=== PATIENT | male | born 1990 ===

== ENCOUNTER 2021-06-27 07:57 | Inpatient (IN) | payer SELFPAY ==
[2021-06-27 08:53] LABS: Hematocrit 41.1 % (35.5-45.6); Hemoglobin 13.3 gm/dl (11.8-15.2); Mean Corpuscular HGB Conc 32 % (32-34); Mean Corpuscular Volume 84 fl (84-94); Platelet Count 297 K/mm3 (140-440); Red Blood Count 4.92 M/mm3 (3.65-5.03); Red Cell Distribution Width 17.8 % (13.2-15.2)
--- NOTE | 2021-06-27 09:02 | Emergency Department Report ---
ED General Adult HPI - General Chief complaint: Extremity Problem,Nontraumatic Stated complaint: RT LEG PAIN PUI?: No Time Seen by Provider: 06/27/21 08:10 Source: patient Mode of arrival: Ambulatory Limitations: No Limitations - History of Present Illness Initial comments: 30 yo male comes to ER with BLE pain; Right more than left. Hx DVT. Family is to bring medical records Denies sob or chest pain. Welsh speaking pt. Poor informant. Pt was admitted to [facility] 05-30-21 to 06-04-21 for DVT and what was concerning for mass/nodules on chest xray. Biopsy was done but no results are in the EMR provided to me Pt has been on lovenox BID since 06-04-21; he reports compliance but he states the pain is unbearable. 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 Absent: respiratory distress - Cardiovascular Cardiovascular Exam: Present: regular rate, normal rhythm. Absent: systolic murmur, diastolic murmur, rubs, gallop - GI/Abdominal GI/Abdominal exam: Present: soft, normal bowel sounds - Rectal Rectal exam: Present: deferred - Extremities Exam Extremities exam: Present: normal inspection - Expanded Lower Extremity Exam Right Lower Leg exam: Present: swelling - Back Exam Back exam: Present: normal inspection - Neurological Exam Neurological exam: Present: alert, oriented X3 - Psychiatric Psychiatric exam: Present: normal affect, normal mood - Skin Skin exam: Present: warm, dry, intact, normal color. Absent: rash ED Course Vital Signs 06/27/21 06/27/21 08:03 12:24 Temperature 98.2 F Pulse Rate 57 L 52 L Respiratory 18 12 Rate Blood Pressure 109/73 Blood Pressure 100/61 [Right] O2 Sat by Pulse 100 98 Oximetry ED Medical Decision Making - Lab Data Result diagrams: 06/27/21 08:36 06/27/21 08:36 - EKG Data EKG shows normal: sinus rhythm Rate: normal - EKG Data When compared to previous EKG there are: no significant change Interpretation: no acute changes - Radiology Data Radiology results: report reviewed, image reviewed interpreted by me: bilateral DVT PE see reports - Medical Decision Making Labs 06/27/21 06/27/21 08:36 08:36 WBC 5.2 RBC 4.92 Hgb 13.3 Hct 41.1 MCV 84 MCH 27 L MCHC 32 RDW 17.8 H Plt Count 297 Sodium 140 Potassium 4.2 Chloride 105.2 Carbon Dioxide 23 Anion Gap 16 BUN 9 Creatinine 0.9 Estimated GFR > 60 BUN/Creatinine Ratio 10 Glucose 94 Calcium 9.1 Total Bilirubin 0.30 AST 13 ALT 29 Alkaline Phosphatase 66 Total Protein 7.2 Albumin 4.1 Albumin/Globulin Ratio 1.3 Vital Signs 06/27/21 08:03 Temperature 98.2 F Pulse Rate 57 L Respiratory 18 Rate Blood Pressure 109/73 O2 Sat by Pulse [address] Barbi Rey consulted- NPO p MN and heparin gtt. Pt and friend updated on admit Dr Landon has called Dr Zacarias [facility] for admit. - Differential Diagnosis ro dvt Critical care attestation.: If time is entered above; I have spent that time in minutes in the direct care of this critically ill patient, excluding procedure time. ED Disposition Clinical Impression: DVT, bilateral lower limbs Qualifiers: Affected thrombotic vein of extremity: popliteal Chronicity: unspecified Qualified Code(s): I82.433 - Acute embolism and thrombosis of popliteal vein, bilateral Pulmonary emboli Qualifiers: Pulmonary embolism type: unspecified Acute cor pulmonale presence: with acute cor pulmonale Disposition: ADMITTED INPATIENT Is pt being admited?: Yes Does the pt Need Aspirin: No Condition: Stable Time of Disposition: :18
[2021-06-27 09:18] LABS: Alanine Aminotransferase 29 units/L (7-56); Albumin 4.1 g/dL (3.9-5); BUN/Creatinine Ratio 10; Blood Urea Nitrogen 9 mg/dL (9-20); Calcium 9.1 mg/dL (8.4-10.2); Hemolysis Index 6
[2021-06-27] MEDS ORDERED: SODIUM CHLORIDE 0.9% 1000 ML 1,000 ML IV ONE (11:18)
--- NOTE | 2021-06-27 11:24 | Vascular Lab Report ---
DUPLEX DOPPLER LOWER EXTREMITY VEINS, BILATERAL INDICATION / CLINICAL INFORMATION: Lower extremity pain and swelling TECHNIQUE: Duplex doppler imaging was performed through the veins of both lower extremities using venous nany marcy and other maneuvers. COMPARISON: None available. FINDINGS: Right Common Femoral vein: Positive. Right Femoral vein: Positive. Right Popliteal vein: Positive. Right Calf veins: Positive. Left Common Femoral vein: Negative. Left Femoral vein: Positive. Left Popliteal vein: Positive. Left Calf veins: Positive. Additional findings: None. IMPRESSION: Extensive acute occlusive appearing DVT identified within within both lower extremities, as above. The ophthalmic technician apprentice notified nurse lisa Fernandez at 10:55 AM on the day of the exam. Signer Name: Chaparro Marques MD Signed: 06/27/2021 11:19 AM Workstation Name: [id number]
[2021-06-27 12:58] LABS: INR 0.92 (0.87-1.13)
[2021-06-27 12:59] LABS: Partial Thromboplastin Time 34.2 Sec. (24.2-36.6)
--- NOTE | 2021-06-27 13:21 | Cat Scan Report ---
CTA chest with contrast INDICATION : cp OMNI 350 100 ML. TECHNIQUE: Axial imaging performed through the chest, with contrast bolus timing set to maximize opa cification of the pulmonary arteries. 3-plane MIP reformatted images were obtained. All CT scans at this location are performed using CT dose reduction for ALARA by means of automated exposure control. 100 mL of intravenous contrast administered. COMPARISON: None FINDINGS: Bolus/PTE: Contrast bolus timing is adequate. There is thrombus primarily seen along the branch poi nts in the segmental and subsegmental distribution bilaterally, some of which is marginalized and the refore age indeterminate although some other areas appear slightly more acute. Mild streaky airspace disease noted in the left greater than right lung bases and there is also some underlying nodularity and a few of these areas (for example see the superior segment of the right lower lobe on image #206 of series 4). No dense consolidation or pleural effusion identified. Mediastinum: Normal heart size. No pathologic mediastinal adenopathy. There is slight flattening of the interventricular septum and there is mild haziness in the mediastinal fat. No pathologic mediast inal adenopathy. Upper abdomen: Limited imaging of the upper abdomen shows nothing acute. Bones: Degenerative changes in the spine with nothing acute. IMPRESSION: 1. Positive for PTE as outlined above. 2. Lung findings as above. Given the nodularity, recommend follow-up to resolution. CRITICAL RESULT: Time of Discovery (GASFITTER/CDT): 12:14 PM Time of Communication (GASFITTER/CDT): 12:16 PM Licensed Practitioner Receiving Report: SUNITHA Islas Read-Back Performed: Yes. Signer Name: Enio Acosta MD Signed: 06/27/2021 1:17 PM Workstation Name: [id number]
[2021-06-27] MEDS ORDERED: HEPARIN 10,000 UNITS/10 ML VIAL IV PRN (13:35)
[2021-06-27] MEDS ORDERED: oxyCODONE /ACETAMINOPHEN 5-325MG TAB PO PRN (14:33)
[2021-06-27] MEDS ORDERED: ACETAMINOPHEN 325 MG TAB PO PRN (14:33)
[2021-06-27] MEDS ORDERED: HYDROmorphone 1 MG/1 ML INJ IV PRN (14:33)
[2021-06-27] MEDS ORDERED: ONDANSETRON 4 MG/2 ML INJ IV PRN (14:33)
[2021-06-27] MEDS ORDERED: ALBUTEROL 2.5 MG/3 ML NEBU IH PRN (14:33)
--- NOTE | 2021-06-27 14:35 | History and Physical Report ---
History of Present Illness Chief complaint: The back of my legs hurt History of present illness: 30 YO Male with DVT/PE currently on therapeutic anticoagulation with Lovenox presents ED for evaluation. Patient reports "my legs hurt". Patient reports he has experienced pain to bilateral lower extremities for the past 1 month with persistent and worsening symptoms over the past 3 days. Patient states the pain is 7/10, constant, achy, without exacerbating or alleviating factors. Patient acknowledges medication compliance. Patient transported to [facility] via private vehicle for further care and evaluation of the aforementioned symptoms. The patient was seen and evaluated in the emergency department. All lab and imaging studies reviewed. Patient underwent CTA chest as well as bilateral lower extremity duplex and was found to have large venous thromboembolic disease complicated by right heart strain vascular surgery team consulted in ED. Patient admitted to ICU and initiated on therapeutic anticoagulation with heparin drip. Patient pending EKOS therapy in a.m. Patient denies fever, chills, chest pain, palpitations, productive cough, skin rash, recent ill contact, or known exposure to COVID-19. No prior admission for review. All medication listed at time of admission has been reconciled. Advanced care planning conducted in ED. Past History Past Medical History: DVT, pulmonary embolism Past Surgical History: No surgical history, Other (See HPI) Social history: single, Lives alone. denies: smoking, alcohol abuse, prescription drug abuse Family history: no significant family history, CAD, cancer, diabetes Medications and Allergies Allergies Allergy/AdvReac Type Severity Reaction Status Date / Time No Known Allergies Allergy Verified 06/27/21 08:00 Active Meds: Active Medications Hydrocodone Bitart/Acetaminophen (Hydrocodone/Acetaminophen 5-325 Mg Tab) 1 each PO Q4H PRN PRN Reason: Pain, Moderate (4-6) Heparin Sodium (Porcine) (Heparin 10,000 Units/10 Ml Vial) 2,700 unit 40 unit/kg (2700 unit) IV Q6H PRN PRN Reason: Anti-Xa Assay<0.1 units/ml Review of Systems Constitutional: no weight loss, no weight gain, no fever, no chills, no sweats Ears, nose, mouth and throat: no ear pain, no ear discharge, no decreased heari ng, no nasal congestion Cardiovascular: no chest pain, no orthopnea, no syncope Respiratory: no cough, no shortness of breath Gastrointestinal: no abdominal pain, no nausea, no vomiting, no diarrhea, no change in bowel habits, no coffee ground emesis Genitourinary Male: no dysuria, no flank pain, no discharge, no urinary frequency, no urinary hesitancy Rectal: no pain, no incontinence, no bleeding Musculoskeletal: no neck pain, no arm numbness/tingling, no low back pain, no shooting leg pain Integumentary: no rash, no pruritis, no redness, no sores, no wounds Neurological: no head injury, no transient paralysis, no paralysis, no weakness, no tingling, no seizures, no syncope, no tremors, no lack of coordination Psychiatric: no anxiety, no memory loss, no change in sleep habits, no sleep disturbances, no hypersomnia, no change in appetite, no change in libido, no suicidal ideation, no disorientation, no hallucinations Endocrine: no cold intolerance, no polyphagia, no excessive thirst, no polyuria, no flushing Hematologic/Lymphatic: no easy bruising, no easy bleeding, no lymphedema Allergic/Immunologic: no urticaria, no allergic rhinitis, no angioedema Exam - Constitutional Vitals: Temp Pulse Resp BP Pulse Ox 98.2 F 52 L 12 100/61 98 06/27/21 08:03 06/27/21 12:24 06/27/21 12:24 06/27/21 12:24 06/27/21 12:24 General appearance: Present: mild distress - EENT Eyes: Present: PERRL ENT: hearing intact, clear oral mucosa - Neck Neck: Present: supple, normal ROM - Respiratory Respiratory effort: normal Respiratory: bilateral: CTA - Cardiovascular Heart Sounds: Present: S1 & S2. Absent: rub, click - Extremities Extremities: pulses symmetrical, abnormal Extremity abnormal: edema, other (Palpable cords) Peripheral Pulses: within normal limits - Abdominal General gastrointestinal: Present: soft, non-tender, non-distended, normal bowel sounds Male genitourinary: Present: normal - Integumentary Integumentary: Present: clear, warm, dry - Musculoskeletal Musculoskeletal: gait normal, strength equal bilaterally - Psychiatric Psychiatric: appropriate mood/affect, intact judgment & insight - Neurologic Neurologic: CNII-XII intact, moves all extremities Results - Labs CBC & Chem 7: 06/27/21 13:44 06/27/21 08:36 Labs: Abnormal lab results 06/27/21 Range/Units 08:36 MCH 27 L (28-32) pg RDW 17.8 H (13.2-15.2) % Assessment and Plan - Patient Problems (1) Pulmonary emboli Current Visit: Yes Status: Acute Qualifiers: Pulmonary embolism type: unspecified Acute cor pulmonale presence: with acute cor pulmonale Plan to address problem: Chest x-ray, CTA chest, supplemental oxygen, pulse oximetry, vascular surgery consulted, therapeutic anticoagulation, supportive care. Patient is pending surgical intervention in a.m. The high probability of a clinically significant, sudden or life threatening deterioration of the [pulmonary, vascular,] system(s) required my full and direct attention, intervention and personal management. The aggregate critical care time was [65] minutes. This time is in addition to time spent performing reported procedures but includes the following: [x] Data Review and interpretation [x] Patient assessment and monitoring of vital signs [x] Documentation [x] Medication orders and management (2) DVT, bilateral lower limbs Current Visit: Yes Status: Acute Qualifiers: Affected thrombotic vein of extremity: popliteal Chronicity: unspecified Qualified Code(s): I82.433 - Acute embolism and thrombosis of popliteal vein, bilateral Plan to address problem: Bilateral lower extremity Doppler, supportive care, therapeutic anticoagulation. Patient is pending EKOS therapy in a.m. (3) DVT prophylaxis Current Visit: Yes Status: Acute Plan to address problem: SCDs bilateral lower extremities while in bed, therapeutic anticoagulation. (4) Advance care planning Current Visit: Yes Status: Acute Plan to address problem: Disease education conducted, care plan discussed, diagnoses discussed, prognosis discussed, care plan discussed, patient is full code. Patient knowledges understanding and agreement with care plan, +30 minutes.
[2021-06-27 14:51] LABS: Hematocrit 40.8 % (35.5-45.6)
[2021-06-27 15:11] LABS: INR 0.98 (0.87-1.13)
[2021-06-27 15:12] LABS: Partial Thromboplastin Time 32.2 Sec. (24.2-36.6)
[2021-06-27] MEDS ORDERED: SODIUM CHLORIDE 0.9% 1000 ML 1,000 ML ONE ×3 (15:22→19:15)
[2021-06-27] MEDS ORDERED: ALTEPLASE 10 MG in SODIUM CHLORIDE 0.9% 250ML 250 ML EKOSDLUMEN STA ×2 (15:49→20:34)
[2021-06-27] MEDS ORDERED: ALTEPLASE 10 MG in SODIUM CHLORIDE 0.9% 250ML 250 ML IV STA ×2 (15:49→20:35)
[2021-06-27] MEDS ORDERED: SODIUM CHLORIDE 0.9% 1000 ML 1,000 ML IV SCH (16:00)
[2021-06-27] MEDS ORDERED: HEPARIN/ 0.45% NACL DRIP 25,000 UNIT/500 ML BAG SHEATH SCH ×2 (16:00)
[2021-06-27] MEDS ORDERED: SODIUM CHLORIDE 0.9% 1000 ML 1,000 ML SHEATH SCH ×2 (16:00)
[2021-06-27] MEDS ORDERED: SODIUM CHLORIDE 0.9% 1000 ML 1,000 ML EKOSCLUMEN SCH ×2 (16:00)
[2021-06-27] MEDS ORDERED: HEPARIN/NS 5000 UNIT/500ML 500 ML IR ONE (16:16)
[2021-06-27] MEDS ORDERED: HEPARIN 10,000 UNITS/10 ML VIAL ONE ×2 (16:17→18:34)
[2021-06-27] MEDS ORDERED: MIDAZOLAM 2 MG/2 ML INJ ONE ×2 (16:17→17:09)
[2021-06-27] MEDS ORDERED: fentaNYL 100 MCG/2 ML INJ ONE ×2 (16:18→17:09)
[2021-06-27] MEDS ORDERED: HEPARIN/NS 5000 UNITS/500 ML BAG (CATH LAB ONLY) IR ONE ×3 (16:30→18:22)
[2021-06-27] MEDS ORDERED: MIDAZOLAM 2 MG/2 ML INJ IV ONE ×6 (16:41→18:15)
[2021-06-27] MEDS ORDERED: fentaNYL 100 MCG/2 ML INJ IV ONE ×6 (16:42→18:15)
[2021-06-27] MEDS ORDERED: ceFAZolin/STERILE WATER 2 GM/20 ML SYRINGE IV ONE (16:50)
[2021-06-27] MEDS ORDERED: LIDOCAINE (2%) 20 MG/1 ML VIAL 20 ML MDV INFILTRATI ONE ×4 (17:00→17:48)
[2021-06-27] MEDS ORDERED: ceFAZolin/Water 2 GM/20 ML 2 GM/20 ML SYRINGE IV ONE (17:02)
[2021-06-27] MEDS ORDERED: SODIUM CHLORIDE 0.9% 1000 ML 2,000 ML ONE (17:06)
[2021-06-27] MEDS ORDERED: HEPARIN/ 0.45% NACL DRIP 50,000 UNIT/1,000 ML BAG ONE (17:06)
[2021-06-27] MEDS ORDERED: WATER FOR INJ Sterile (PF) 20 ML ONE (17:35)
[2021-06-27] MEDS ORDERED: ALTEPLASE 2 MG INJ ONE (17:35)
[2021-06-27] MEDS ORDERED: HEPARIN/NS 5000 UNIT/500ML 1,000 ML IR ONE (17:52)
[2021-06-27] MEDS ORDERED: HEPARIN 10,000 UNITS/10 ML VIAL IV ONE ×2 (17:59→18:39)
[2021-06-27] MEDS ORDERED: ALTEPLASE 2 MG INJ IV ONE (18:35)
--- NOTE | 2021-06-27 18:48 | Consultation ---
History of Present Illness - Reason for Consult Consult date: 06/27/21 Extensive DVT and PE - History of Present Illness Patient with a history of bilateral lower extremity DVT as well as segmental and subsegmental pulmonary embolism. History is difficult to obtain secondary to language barrier however this appears to of started approximately 2 weeks ago. Past History Past Medical History: DVT, pulmonary embolism Past Surgical History: No surgical history, Other (See HPI) Social history: single, Lives alone. denies: smoking, alcohol abuse, prescription drug abuse Family history: no significant family history, CAD, cancer, diabetes Medications and Allergies Allergies Allergy/AdvReac Type Severity Reaction Status Date / Time No Known Allergies Allergy Verified 06/27/21 08:00 Active Meds: Active Medications Acetaminophen (Acetaminophen 325 Mg Tab) 650 mg PO Q4H PRN PRN Reason: Pain MILD(1-3)/Fever >100.5/GAMEZ Hydrocodone Bitart/Acetaminophen (Hydrocodone/Acetaminophen 5-325 Mg Tab) 1 ea ch PO Q4H PRN PRN Reason: Pain, Moderate (4-6) Albuterol (Albuterol 2.5 Mg/3 Ml Nebu) 2.5 mg IH Q4HRT PRN PRN Reason: Shortness Of Breath Heparin Sodium (Porcine) (Heparin 10,000 Units/10 Ml Vial) 2,700 unit 40 unit/kg (2700 unit) IV Q6H PRN PRN Reason: Anti-Xa Assay<0.1 units/ml Hydromorphone HCl (Hydromorphone 1 Mg/1 Ml Inj) 0.5 mg IV Q23H PRN PRN Reason: Pain , Severe (7-10) Sodium Chloride (Nacl 0.9% 1000 Ml) 1,000 mls @ 30 mls/hr IV DIRECT IDANIA Alteplase, Recombinant 10 mg/ (Sodium Chloride) 250 mls @ 10 mls/hr EKOSDLUMEN DIRECT STA Stop: 06/28/21 16:48 Alteplase, Recombinant 10 mg/ (Sodium Chloride) 250 mls @ 10 mls/hr IV DIRECT STA Stop: 06/28/21 16:48 Sodium Chloride (Nacl 0.9% 1000 Ml) 1,000 mls @ 30 mls/hr SHEATH DIRECT IDANIA Sodium Chloride (Nacl 0.9% 1000 Ml) 1,000 mls @ 35 mls/hr EKOSCLUMEN DIRECT IDANIA Sodium Chloride (Nacl 0.9% 1000 Ml) 1,000 mls @ 30 mls/hr SHEATH DIRECT IDANIA Sodium Chloride (Nacl 0.9% 1000 Ml) 1,000 mls @ 35 mls/hr EKOSCLUMEN DIRECT IDANIA Heparin Sodium/Sodium Chloride (Heparin/ 0.45% Nacl-25,000 Unit/500 Ml) 25,000 unit in 500 mls @ 10 mls/hr SHEATH DIRECT IDANIA; Protocol Heparin Sodium/Sodium Chloride (Heparin/ 0.45% Nacl-25,000 Unit/500 Ml) 25,000 unit in 500 mls @ 10 mls/hr SHEATH DIRECT IDANIA; Protocol Ondansetron HCl (Ondansetron 4 Mg/2 Ml Inj) 4 mg IV Q8H PRN PRN Reason: Nausea And Vomiting Oxycodone/Acetaminophen (Oxycodone /Acetaminophen 5-325mg Tab) 1 tab PO Q16H PRN PRN Reason: Pain, Moderate (4-6) Sodium Chloride (Sodium Chloride 0.9% 10 Ml Flush Syringe) 10 ml IV BID IDANIA Sodium Chloride (Sodium Chloride 0.9% 10 Ml Flush Syringe) 10 ml IV PRN PRN PRN Reason: LINE FLUSH Review of Systems ROS unobtainable: due to mental status (Language barrier) Exam - Constitutional Vitals: Temp Pulse Resp BP Pulse Ox 98.2 F 50 L 12 110/75 100 06/27/21 08:03 06/27/21 14:45 06/27/21 14:45 06/27/21 14:45 06/27/21 14:45 General appearance: Present: no acute distress - EENT Eyes: Present: EOM intact ENT: hearing intact - Neck Neck: Present: supple, normal ROM - Respiratory Respiratory effort: normal - Extremities Extremity abnormal: edema - Abdominal General gastrointestinal: Present: deferred Male genitourinary: Present: deferred - Rectal Rectal Exam: deferred - Psychiatric Psychiatric: cooperative Results - Labs CBC & Chem 7: 06/27/21 13:44 06/27/21 08:36 Labs: Abnormal lab results 06/27/21 Range/Units 08:36 MCH 27 L (28-32) pg RDW 17.8 H (13.2-15.2) % - Imaging and Cardiology CT scan - chest: report reviewed, image reviewed Venous US: report reviewed, image reviewed Assessment and Plan Patient will be brought to the [facility]etics [facility] today for placement of thrombolytics catheters in bilateral lower extremities as well as placement of an IVC filter for protection against further pulmonary emboli given his significant lower extremity thrombus burden and the presence of pulmonary emboli already.
--- NOTE | 2021-06-27 18:58 | Operative Report ---
Operative Report Operative Report: Exam: IVC filter placement, placement of bilateral lower extremity EKOS thrombolytics catheters Clinical indication: Patient with a history of extensive lower extremity DVT as well as pulmonary embolism Date: 06/27/2021 Procedure: Following an explanation of the risk, benefits and alternatives through health assistant, written informed consent was obtained. The patient was brought to the angiographic suite and placed in the supine position on the examination table. Initial ultrasound evaluation of the patient's left groin demonstrated a patent left common femoral vein. Patient's left groin was prepped and draped in usual sterile fashion. 1% lidocaine was used for anesthesia. Under ultrasound guidance, left common femoral vein was cannulated with a 7 cm 18-gauge needle. A 0.035 guidewire was advanced centrally. The needle was removed and a 5 Pakistani sheath placed. Contrast was injected through the sheath and imaging obtained of the IVC. There is prompt opacification of the IVC with no intraluminal thrombus. Appropriate size criteria is met. The level of the lowest renal vein is identified. Following serial dilation, a 10 Pakistani IVC filter introducer sheath was then advanced over the guidewire. The trocar and guidewire were removed and the IVC filter advanced. The tip of the filter was placed at the mid vertebral body of L2. Satisfactory positioning with no significant tilt was noted. Postplacement angiography demonstrated appropriate positioning. A 0.035 guidewire was again advanced through the sheath and the sheath removed. A 12 Pakistani triple-lumen catheter was then advanced over the guidewire through the left groin to occlude the luminal track in anticipation of TPA administration. I the patient was then placed in prone position. Initial ultrasound evaluation of the patient's left leg demonstrated what appeared to be a patent popliteal vein however, compression demonstrate some occlusion and decision made to access the small saphenous vein. 1% lidocaine was used for anesthesia. Under ultrasound guidance, the small saphenous vein was cannulated with a 7 cm 21-gauge needle. A 0.018 guidewire was advanced centrally. The needle was removed and a microsheath placed. The 0.018 guidewire was exchanged for a 0.035 guidewire and the micro sheath exchanged for a 6 Pakistani vascular sheath. Contrast was injected through the sheath. This demonstrates a significant amount of thrombus throughout the entire length of the femoral vein. A vertebral catheter was then advanced over the guidewire and together guidewire and catheter advanced into the common femoral vein. Contrast was injected. This demonstrates significant stenosis. No significant thrombus is identified in the common iliac vein, external iliac vein or common femoral vein. Pullback venography was performed. There is significant thrombus occluding the entire femoral vein. A 40 cm infusion length 106 cm total length EKOS catheter was then advanced over the guidewire to position the catheter tip in the external iliac vein and the distal side ports in the distal femoral vein just proximal to the sheath. The infusion wire was then advanced through the catheter and locked into place and the catheter primed with 4 mg of TPA. The sheath was primed with 4000 units of heparin. Under ultrasound guidance, the small saphenous vein on the right was then cannulated with a 7 cm 21-gauge needle. A 0.018 guidewire was advanced centrally. The needle was removed and a microsheath placed. The 0.018 guidewire was exchanged for a 0.035 guidewire and the micro sheath exchanged for a 6 Pakistani vascular sheath. Contrast was injected through the sheath which demonstrates that the small saphenous veins extends into a large collateral. There does not appear to be communication between the small saphenous vein and the femoral vein. Additional ultrasound evaluation of the popliteal fossa demonstrated partially compressible popliteal vein. Additional lidocaine was utilized and the popliteal vein cannulated under ultrasound guidance with a 7 cm 21-gauge needle. A 0.018 guidewire was advanced centrally. The needle was a microsheath placed. The 0.018 guidewire was exchanged for a 0.035 guidewire and the micro sheath exchanged for a 6 Pakistani vascular sheath. Contrast was injected through the sheath which demonstrates appropriate positioning. There is only partial opacification of the distal femoral vein secondary to significant likely chronic thrombus. Vertebral catheter and 0.035 guidewire were then manipulated through the occluded femoral vein into the common femoral vein and external iliac vein. Contrast was injected. This demonstrates that the right common iliac vein is patent. There is occlusion of the external iliac vein distally. True luminal positioning was confirmed with contrast identified extending from the common iliac vein to the IVC. The vertebral catheter was removed over the guidewire and a 50 cm infusion length 106 cm total length EKOS thrombolytics catheter was then advanced over the guidewire to position the tip in the right common iliac vein and the distal aspect of the catheter in the distal femoral vein. The guidewire was removed and the infusion wire placed. The catheter was primed with 4 mg of TPA and the sheath primed with 4000 units of heparin. Both sheaths were secured to the skin surface using 2-0 Ethilon suture sterile dressings were then applied. The patient tolerated the procedure well. There were no immediate post procedure complications. A minimal amount of conscious sedation was performed under the guidance of radiologic nursing. Continuous cardiopulmonary monitoring was utilized. Impression: 1) Ultrasound and fluoroscopic guided placement of infrarenal IVC filter. 2) Fluoroscopic guided placement of triple-lumen catheter. 3) Placement of a 40 cm infusion length 106 cm total length EKOS thrombolytics catheter in the left extending from the popliteal vein into the external iliac vein. 4) Placement of a 50 cm infusion length 106 cm total length EKOS thrombolytics catheter in the right extending from the distal femoral vein to the external iliac vein.
[2021-06-27] MEDS ORDERED: SODIUM CHLORIDE 0.9% 1000 ML IV SOLN EKOSCLUMEN SCH (20:30)
[2021-06-27 21:20] LABS: Basophils # (Auto) 0.1 K/mm3 (0.0-0.1); Eosinophils # (Auto) 0.2 K/mm3 (0.0-0.4); Hematocrit 38.6 % (35.5-45.6); Hemoglobin 12.6 gm/dl (11.8-15.2); Lymphocytes # (Auto) 2.6 K/mm3 (1.2-5.4); Lymphocytes % (Auto) 35.4 % (13.4-35.0); Mean Corpuscular HGB Conc 33 % (32-34); Mean Corpuscular Volume 83 fl (84-94); Monocytes # (Auto) 0.6 K/mm3 (0.0-0.8); Monocytes % (Auto) 7.9 % (0.0-7.3); Platelet Count 270 K/mm3 (140-440); Red Blood Count 4.66 M/mm3 (3.65-5.03); Red Cell Distribution Width 17.5 % (13.2-15.2)
[2021-06-27 21:30] LABS: INR 1.03 (0.87-1.13)
[2021-06-27 21:47] LABS: BUN/Creatinine Ratio 8; Blood Urea Nitrogen 6 mg/dL (9-20); Calcium 8.5 mg/dL (8.4-10.2)
[2021-06-27 22:09] LABS: Partial Thromboplastin Time 235.8 Sec. (24.2-36.6)
[2021-06-27] MEDS: HYDROcodone/ACETAMINOPHEN 5-325 MG TAB PO PRN (22:27)
[2021-06-28 00:48] LABS: Basophils % (Auto) 0.8 % (0.0-1.8); Eosinophils # (Auto) 0.1 K/mm3 (0.0-0.4); Eosinophils % (Auto) 2.1 % (0.0-4.3); Hematocrit 37.8 % (35.5-45.6); Hemoglobin 12.1 gm/dl (11.8-15.2); Lymphocytes # (Auto) 2.3 K/mm3 (1.2-5.4); Lymphocytes % (Auto) 37.5 % (13.4-35.0); Mean Corpuscular HGB Conc 32 % (32-34); Mean Corpuscular Volume 84 fl (84-94); Monocytes # (Auto) 0.4 K/mm3 (0.0-0.8); Monocytes % (Auto) 6.1 % (0.0-7.3); Platelet Count 253 K/mm3 (140-440); Red Blood Count 4.52 M/mm3 (3.65-5.03); Red Cell Distribution Width 17.9 % (13.2-15.2)
[2021-06-28 00:58] LABS: INR 1.02 (0.87-1.13)
[2021-06-28 01:06] LABS: Partial Thromboplastin Time 97.5 Sec. (24.2-36.6)
[2021-06-28 05:28] LABS: Basophils % (Auto) 0.9 % (0.0-1.8); Eosinophils # (Auto) 0.1 K/mm3 (0.0-0.4); Eosinophils % (Auto) 2.6 % (0.0-4.3); Hematocrit 36.8 % (35.5-45.6); Hemoglobin 12.2 gm/dl (11.8-15.2); Lymphocytes # (Auto) 1.8 K/mm3 (1.2-5.4); Lymphocytes % (Auto) 32.8 % (13.4-35.0); Mean Corpuscular HGB Conc 33 % (32-34); Mean Corpuscular Volume 83 fl (84-94); Monocytes # (Auto) 0.4 K/mm3 (0.0-0.8); Monocytes % (Auto) 7.6 % (0.0-7.3); Platelet Count 258 K/mm3 (140-440); Red Blood Count 4.42 M/mm3 (3.65-5.03)
[2021-06-28 05:34] LABS: BUN/Creatinine Ratio 7; Blood Urea Nitrogen 6 mg/dL (9-20); Calcium 8.5 mg/dL (8.4-10.2); Hemolysis Index 5
[2021-06-28 05:48] LABS: INR 1.01 (0.87-1.13)
[2021-06-28 05:52] LABS: Partial Thromboplastin Time 69.4 Sec. (24.2-36.6)
[2021-06-28 08:59] LABS: Hematocrit 36.7 % (35.5-45.6); Hemoglobin 12.1 gm/dl (11.8-15.2); Mean Corpuscular HGB Conc 33 % (32-34); Mean Corpuscular Volume 82 fl (84-94); Platelet Count 240 K/mm3 (140-440); Red Blood Count 4.45 M/mm3 (3.65-5.03); Red Cell Distribution Width 17.4 % (13.2-15.2)
[2021-06-28 09:13] LABS: INR 1.01 (0.87-1.13)
[2021-06-28] MEDS ORDERED: ALTEPLASE 10 MG in SODIUM CHLORIDE 0.9% 250ML 250 ML IV ONE (09:30)
[2021-06-28] MEDS ORDERED: ALTEPLASE 10 MG in SODIUM CHLORIDE 0.9% 250ML 250 ML EKOSDLUMEN ONE (09:30)
[2021-06-28 09:45] LABS: Partial Thromboplastin Time 64.5 Sec. (24.2-36.6)
[2021-06-28] MEDS ORDERED: HEPARIN IR ONE (12:08)
[2021-06-28] MEDS ORDERED: NS IR ONE (12:08)
[2021-06-28] MEDS ORDERED: HEPARIN 10,000 UNITS/10 ML VIAL ONE (12:09)
[2021-06-28] MEDS ORDERED: fentaNYL 100 MCG/2 ML INJ ONE ×2 (12:09→15:06)
[2021-06-28] MEDS ORDERED: MIDAZOLAM 2 MG/2 ML INJ ONE ×2 (12:09→15:06)
[2021-06-28] MEDS ORDERED: VERAPAMIL 5 MG/2 ML INJ ONE (12:09)
[2021-06-28] MEDS ORDERED: LIDOCAINE (2%) 20 MG/1 ML VIAL 20 ML MDV INFILTRATI ONE ×5 (12:10→16:16)
[2021-06-28] MEDS ORDERED: NITROGLYCERIN DRIP 0 MG/0 ML BOTTLE ONE (12:11)
[2021-06-28] MEDS ORDERED: SODIUM CHLORIDE 0.9% 500 ML 500 ML ONE (12:11)
[2021-06-28] MEDS ORDERED: DEXTROSE 50% IN WATER (25GM) 50 ML SYRINGE IV ONE (13:07)
[2021-06-28] MEDS ORDERED: MIDAZOLAM 2 MG/2 ML INJ IV ONE ×4 (13:09→16:24)
[2021-06-28] MEDS ORDERED: fentaNYL 100 MCG/2 ML INJ IV ONE ×4 (13:10→15:09)
[2021-06-28] MEDS ORDERED: ceFAZolin/Water 2 GM/20 ML 2 GM/20 ML SYRINGE IV ONE (13:34)
[2021-06-28] MEDS ORDERED: HEPARIN 10,000 UNITS/10 ML VIAL IV ONE ×2 (13:34→14:45)
[2021-06-28] MEDS ORDERED: ceFAZolin/STERILE WATER 2 GM/20 ML SYRINGE IV ONE (13:35)
[2021-06-28] MEDS ORDERED: WATER FOR INJ Sterile (PF) 0 ML ONE (13:56)
[2021-06-28] MEDS ORDERED: ALTEPLASE 2 MG INJ ONE ×2 (13:56→13:57)
[2021-06-28] MEDS ORDERED: SODIUM CHLORIDE 0.9% 0 ML ONE (13:56)
--- NOTE | 2021-06-28 14:20 | Electrocardiograph Report ---
[facility] Test Date: 2021-06-28 Test Time: 08:18:35 Pat Name: EDELMIRA DUNNE Department: Room: A253 1 Gender: M Price Changer: CATHERINE : 1990 Requested By: HERMINIO CARCAMO Order Number: [id number] Reading MD: Omar Whitaker Measurements Intervals [place] Rate: 62 P: -20 AR: 153 QRS: 18 QRSD: 94 T: 27 QT: 389 QTc: 396 Interpretive Statements Sinus rhythm Normal ECG No previous ECG available for comparison Electronically Signed On 06-28-2021 14:20:32 EDT by Omar Whitaker
[2021-06-28] MEDS ORDERED: HEPARIN/NS 5000 UNIT/500ML 1,000 ML IR ONE (14:33)
[2021-06-28] MEDS ORDERED: HYDROmorphone 1 MG/1 ML INJ ONE (15:14)
[2021-06-28] MEDS ORDERED: HYDROmorphone 1 MG/1 ML INJ IV ONE ×2 (15:16→16:25)
[2021-06-28] MEDS ORDERED: SODIUM CHLORIDE 0.9% 1000 ML 1,000 ML ONE (15:23)
--- NOTE | 2021-06-28 15:28 | Consultation ---
History of Present Illness Consult date: 06/28/21 Requesting physician: MARCIE OREILLY Reason for consult: other (Acute VTE s/p EkOS) History of present illness: PULMONARY/CCM CONSULT NOTE (Full dictation # [id number]) Please see dictated notes for full details Past History Past Medical History: DVT, pulmonary embolism Past Surgical History: No surgical history, Other (See HPI) Social history: single, Lives alone. denies: smoking, alcohol abuse, presc ription drug abuse Family history: no significant family history, CAD, cancer, diabetes Medications and Allergies Allergies Allergy/AdvReac Type Severity Reaction Status Date / Time No Known Allergies Allergy Verified 06/27/21 08:00 Home Medications Medication Instructions Recorded Confirmed Last Taken Type Enoxaparin Sodium [Lovenox] 80 mg SUB-Q BID 06/27/21 06/27/21 Unknown History Active Meds: Active Medications Acetaminophen (Acetaminophen 325 Mg Tab) 650 mg PO Q4H PRN PRN Reason: Pain MILD(1-3)/Fever >100.5/GAMEZ Hydrocodone Bitart/Acetaminophen (Hydrocodone/Acetaminophen 5-325 Mg Tab) 1 each PO Q4H PRN PRN Reason: Pain, Moderate (4-6) Last Admin: 06/27/21 22:27 Dose: 1 each Documented by: Albuterol (Albuterol 2.5 Mg/3 Ml Nebu) 2.5 mg IH Q4HRT PRN PRN Reason: Shortness Of Breath Heparin Sodium (Porcine) (Heparin 10,000 Units/10 Ml Vial) 2,700 unit 40 unit/kg (2700 unit) IV Q6H PRN PRN Reason: Anti-Xa Assay<0.1 units/ml Hydromorphone HCl (Hydromorphone 1 Mg/1 Ml Inj) 0.5 mg IV Q23H PRN PRN Reason: Pain , Severe (7-10) Sodium Chloride (Nacl 0.9% 1000 Ml) 1,000 mls @ 35 mls/hr EKOSCLUMEN DIRECT IDANIA Last Admin: 06/27/21 21:09 Dose: 35 mls/hr Documented by: Heparin Sodium/Sodium Chloride (Heparin/ 0.45% Nacl-25,000 Unit/500 Ml) 25,000 unit in 500 mls @ 10 mls/hr SHEATH DIRECT IDANIA; Protocol Last Admin: 06/27/21 20:30 Dose: 500 units/hr, 10 mls/hr Documented by: Heparin Sodium/Sodium Chloride (Heparin/ 0.45% Nacl-25,000 Unit/500 Ml) 25,000 unit in 500 mls @ 10 mls/hr SHEATH DIRECT IDANIA; Protocol Last Admin: 06/27/21 20:30 Dose: 500 units/hr, 10 mls/hr Documented by: Alteplase, Recombinant 10 mg/ (Sodium Chloride) 250 mls @ 12.5 mls/hr EKOSDLUMEN DIRECT ONE Stop: 06/29/21 05:29 Alteplase, Recombinant 10 mg/ (Sodium Chloride) 250 mls @ 12.5 mls/hr IV DIRECT ONE Stop: 06/29/21 05:29 Ondansetron HCl (Ondansetron 4 Mg/2 Ml Inj) 4 mg IV Q8H PRN PRN Reason: Nausea And Vomiting Oxycodone/Acetaminophen (Oxycodone /Acetaminophen 5-325mg Tab) 1 tab PO Q16H PRN PRN Reason: Pain, Moderate (4-6) Sodium Chloride (Sodium Chloride 0.9% 10 Ml Flush Syringe) 10 ml IV BID IDANIA Sodium Chloride (Sodium Chloride 0.9% 10 Ml Flush Syringe) 10 ml IV PRN PRN PRN Reason: LINE FLUSH Sodium Chloride (Sodium Chloride 0.9% 1000 Ml Iv Soln) 35 ml EKOSCLUMEN DIRECT IDANIA Physical Examination Vital signs: Vital Signs Temp Pulse Resp BP Pulse Ox 98.2 F 57 L 18 109/73 100 06/27/21 08:03 06/27/21 08:03 06/27/21 08:03 06/27/21 08:03 06/27/21 08:03 Results - Laboratory Findings CBC and BMP: 06/28/21 08:32 06/28/21 04:45 PT/INR, D-dimer PT 14.4 Sec. (12.2-14.9) 06/28/21 08:32 INR 1.01 (0.87-1.13) 06/28/21 08:32 Abnormal lab findings: Abnormal Labs 06/27/21 06/27/21 06/27/21 08:36 19:27 19:27 MCV 83 L MCH 27 L 27 L RDW 17.8 H 17.5 H Lymph % (Auto) 35.4 H [place] % (Auto) 7.9 H APTT 235.8 H* Carbon Dioxide BUN POC Glucose 06/27/21 06/28/21 06/28/21 19:27 00:40 00:40 MCV MCH 27 L RDW 17.9 H Lymph % (Auto) 37.5 H [place] % (Auto) APTT 97.5 H* Carbon Dioxide 21 L BUN 6 L POC Glucose 06/28/21 06/28/21 06/28/21 04:45 04:45 04:45 MCV 83 L MCH RDW 18.0 H Lymph % (Auto) [place] % (Auto) 7.6 H APTT 69.4 H* Carbon Dioxide BUN 6 L POC Glucose 06/28/21 06/28/21 06/28/21 08:32 08:32 11:43 MCV 82 L MCH 27 L RDW 17.4 H Lymph % (Auto) [place] % (Auto) APTT 64.5 H* Carbon Dioxide BUN POC Glucose 69 L
--- NOTE | 2021-06-28 16:25 | Progress Note ---
Assessment and Plan Assessment and plan: This is a 30-year-old male with a history of bilateral lower extremity DVT as well as segmental and subsegmental pulmonary embolism on Lovenox at home who came in complaining of bilateral lower extremities pain for the past month with persistent and worsening symptoms over the past 3 days. Imagings reveals pulmomary thrombus and extensive acute occlussive DVT within both lower extremities. Patient is s/p IVC filter placement and placement of bilateral lower extremity EKOS thrombolytics catheters by vascular. Patient was transferred to the intensive care unit post the procedure for further managemen t. Hospital Course to Date: 06/28/21- Patient remains on EKOS, fully AAO, on RA SpO2 @100%. Palpable pulses noted from bilateral lower extremities, no signs of any complications noted. Patient has been NPO since after midnight, plan to go back to label press operator today for further vascular intervention and removal of EKOS catheters. Assessment and Plan #Pulmonary emboli #DVT, bilateral lower limbs - 06/27 BLE doppler with extensive acute occlusive DVT within both lower extremities - 06/27 CTA chest revealed positive pulmonary thrombus - Vascular consulted - 06/27 s/p IVC filter placement and placement of bilateral lower extremity EKOS thrombolytics catheters - On thrombolitics via EKOS - BLE with palpable pulses - Continue EKO management per protocol and Vascular - Plan to go back to liaison inspection laboratory assistant today for further vascular intervention and removal of EKOS catheters - Continue to trend H&H and coags, am labs ordered. #GI: NPO - NPO for possible procedure today - Resume diet per vascular - PPI- Pepcid IV #Hypoglycemia - Probably due to NPO status - Hypoglycemic protocol initiated - Q6hrs POCT - Avoid hypoglycemia The high probability of a clinically significant, sudden or life threatening deterioration of the [Vascular, Endo] system(s) required my full and direct attention, intervention and personal management. The aggregate critical care time was [35] minutes. This time is in addition to time spent performing reported procedures but includes the following: [x] Data Review and interpretation [x] Patient assessment and monitoring of vital signs [x] Documentation [x] Medication orders and management Disposition Plan: ICU Total Time Spent with Patient (Minutes): 35 History Interval history: Patient seen and examined at the bedside. AAOx4, cook islander speaking only, per snailer service patient only complaint was RLE pain at the site of the EKOs catheter. A pillow was position under that leg which revealed the pain. No futher concerns voiced at this time. Hospitalist Physical - Constitutional Vitals: Temp Pulse Resp BP Pulse Ox 97.8 F 62 13 98/63 98 06/28/21 13:26 06/28/21 11:00 06/28/21 05:40 06/28/21 05:40 06/28/21 08:17 General appearance: Present: no acute distress, well-nourished - EENT Eyes: Present: PERRL ENT: hearing intact, clear oral mucosa - Neck Neck: Present: normal ROM - Respiratory Respiratory effort: normal Respiratory: bilateral: CTA - Cardiovascular Rhythm: regular Heart Sounds: Present: S1 & S2 - Extremities Extremities: no ischemia, pulses intact, pulses symmetrical Extremity abnormal: edema - Peripheral Assessment Right Lower Extremity Edema Type: Non-pitting Capillary Refill: < 3 seconds Skin Temperature: Warm Peripheral Pulses: within normal limits - Abdominal General gastrointestinal: soft, non-tender, normal bowel sounds - Integumentary Integumentary: Present: clear, warm, dry - Psychiatric Psychiatric: appropriate mood/affect, cooperative - Neurologic Neurologic: CNII-XII intact, moves all extremities - Allied Health Allied health notes reviewed: nursing HEART Score - HEART Score Troponin: Troponin T < 0.010 ng/mL (0.00-0.029) 06/27/21 13:44 Results - Labs CBC & Chem 7: 06/28/21 08:32 06/28/21 04:45 Labs: Laboratory Last Values WBC 6.8 K/mm3 (4.5-11.0) 06/28/21 08:32 RBC 4.45 M/mm3 (3.65-5.03) 06/28/21 08:32 Hgb 12.1 gm/dl (11.8-15.2) 06/28/21 08:32 Hct 36.7 % (35.5-45.6) 06/28/21 08:32 MCV 82 fl (84-94) L 06/28/21 08:32 MCH 27 pg (28-32) L 06/28/21 08:32 MCHC 33 % (32-34) 06/28/21 08:32 RDW 17.4 % (13.2-15.2) H 06/28/21 08:32 Plt Count 240 K/mm3 (140-440) 06/28/21 08:32 Lymph % (Auto) 32.8 % (13.4-35.0) 06/28/21 04:45 [place] % (Auto) 7.6 % (0.0-7.3) H 06/28/21 04:45 Eos % (Auto) 2.6 % (0.0-4.3) 06/28/21 04:45 Baso % (Auto) 0.9 % (0.0-1.8) 06/28/21 04:45 Lymph # (Auto) 1.8 K/mm3 (1.2-5.4) 06/28/21 04:45 [place] # (Auto) 0.4 K/mm3 (0.0-0.8) 06/28/21 04:45 Eos # (Auto) 0.1 K/mm3 (0.0-0.4) 06/28/21 04:45 Baso # (Auto) 0.0 K/mm3 (0.0-0.1) 06/28/21 04:45 Seg Neutrophils % 56.1 % (40.0-70.0) 06/28/21 04:45 Seg Neutrophils # 3.0 K/mm3 (1.8-7.7) 06/28/21 04:45 PT 14.4 Sec. (12.2-14.9) 06/28/21 08:32 INR 1.01 (0.87-1.13) 06/28/21 08:32 APTT 64.5 Sec. (24.2-36.6) H* 06/28/21 08:32 Fibrinogen 247 mg/dl (211-480) 06/28/21 08:32 Sodium 139 mmol/L (137-145) 06/28/21 04:45 Potassium 3.7 mmol/L (3.6-5.0) 06/28/21 04:45 Chloride 105.9 mmol/L (98-107) 06/28/21 04:45 Carbon Dioxide 22 mmol/L (22-30) 06/28/21 04:45 Anion Gap 15 mmol/L 06/28/21 04:45 BUN 6 mg/dL (9-20) L 06/28/21 04:45 Creatinine 0.9 mg/dL (0.8-1.3) 06/28/21 04:45 Estimated GFR > 60 ml/min 06/28/21 04:45 BUN/Creatinine Ratio 7 % 06/28/21 04:45 Glucose 86 mg/dL (75-100) 06/28/21 04:45 POC Glucose 69 mg/dL (70-105) L 06/28/21 11:43 Calcium 8.5 mg/dL (8.4-10.2) 06/28/21 04:45 Total Bilirubin 0.30 mg/dL (0.1-1.2) 06/27/21 08:36 AST 13 units/L (5-40) 06/27/21 08:36 ALT 29 units/L (7-56) 06/27/21 08:36 Alkaline Phosphatase 66 units/L (35-129) 06/27/21 08:36 Troponin T < 0.010 ng/mL (0.00-0.029) 06/27/21 13:44 Total Protein 7.2 g/dL (6.3-8.2) 06/27/21 08:36 Albumin 4.1 g/dL (3.9-5) 06/27/21 08:36 Albumin/Globulin Ratio 1.3 % 06/27/21 08:36 Stein/IV: Voiding Method Condom Catheter Active Medications - Current Medications Current Medications: Generic Name Dose Route Start Last Admin Trade Name Freq PRN Reason Stop Dose Admin Acetaminophen 650 mg 06/27/21 14:33 Acetaminophen 325 Mg Tab PO Q4H PRN Pain MILD(1-3)/Fever >100.5/GAMEZ Hydrocodone Bitart/Acetaminophen 1 each 06/27/21 13:35 06/27/21 22:27 Hydrocodone/Acetaminophen 5-325 Mg Tab PO 1 each Q4H PRN Administration Pain, Moderate (4-6) Albuterol 2.5 mg 06/27/21 14:33 Albuterol 2.5 Mg/3 Ml Nebu IH Q4HRT PRN Shortness Of Breath Heparin Sodium (Porcine) 2,700 unit 06/27/21 13:35 Heparin 10,000 Units/10 Ml Vial 40 unit/kg (2700 unit) IV Q6H PRN Anti-Xa Assay<0.1 units/ml Hydromorphone HCl 0.5 mg 06/27/21 14:33 Hydromorphone 1 Mg/1 Ml Inj IV Q23H PRN Pain , Severe (7-10) Sodium Chloride 1,000 mls @ 35 mls/hr 06/27/21 16:00 06/27/21 21:09 Nacl 0.9% 1000 Ml EKOSCLUMEN 35 mls/hr DIRECT IDANIA Administration Heparin Sodium/Sodium Chloride 25,000 unit in 500 mls @ 10 mls/hr 06/27/21 16:00 06/27/21 20:30 Heparin/ 0.45% Nacl-25,000 Unit/500 Ml SHEATH 500 units/hr DIRECT IDANIA 10 mls/hr Administration Protocol 500 UNITS/HR Heparin Sodium/Sodium Chloride 25,000 unit in 500 mls @ 10 mls/hr 06/27/21 16:00 06/27/21 20:30 Heparin/ 0.45% Nacl-25,000 Unit/500 Ml SHEATH 500 units/hr DIRECT IDANIA 10 mls/hr Administration Protocol 500 UNITS/HR Alteplase, Recombinant 10 mg/ 250 mls @ 12.5 mls/hr 06/28/21 09:30 Sodium Chloride EKOSDLUMEN 06/29/21 05:29 DIRECT ONE Alteplase, Recombinant 10 mg/ 250 mls @ 12.5 mls/hr 06/28/21 09:30 Sodium Chloride IV 06/29/21 05:29 DIRECT ONE Ondansetron HCl 4 mg 06/27/21 14:33 Ondansetron 4 Mg/2 Ml Inj IV Q8H PRN Nausea And Vomiting Oxycodone/Acetaminophen 1 tab 06/27/21 14:33 Oxycodone /Acetaminophen 5-325mg Tab PO Q16H PRN Pain, Moderate (4-6) Sodium Chloride 10 ml 06/27/21 22:00 Sodium Chloride 0.9% 10 Ml Flush Syringe IV BID IDANIA Sodium Chloride 10 ml 06/27/21 14:33 Sodium Chloride 0.9% 10 Ml Flush Syringe IV PRN PRN LINE FLUSH Sodium Chloride 35 ml 06/27/21 20:30 Sodium Chloride 0.9% 1000 Ml Iv Soln EKOSCLUMEN DIRECT IDANIA
--- NOTE | 2021-06-28 16:52 | Operative Report ---
Operative Report Operative Report: Date of Procedure: 06/28/2021 Pre-operative Diagnosis: Bilateral Lower Extremity DVT with Severe Swelling and a History of Pulmonary Emboli Post-operative Diagnosis: Same Procedure(s): 1. Removal of Right Lower Extremity EKOS Thrombolysis Catheter 2. Removal of Left Lower Extremity EKOS Thrombolysis Catheter 3. Right Lower Extremity Venogram 4. Left Lower Extremity Venogram 5. Angioplasty of Right Popliteal Vein And Superficial Femoral Vein with 8 x 40 Angiosculpt Balloon 6. Percutaneous Mechanical Thrombectomy of Right Popliteal Vein, Superficial Femoral Vein, and Common Femoral Vein with Nickel Plant Operator Device and Zelante AngioJet Aspiration Catheter 7. Angioplasty and Stent of Right Common Iliac Vein with 16 x 150 Medtronic Abre Self-Expanding Stent and 14 x 40 Parlin Balloon 8. Angioplasty and Stent of Right External Iliac Vein with 16 x 120 Medtronic Abre Self-Expanding Stent And 14 x 40 [place]lin Balloon 9. Percutaneous Mechanical Thrombectomy of Left Popliteal Vein, Superficial Femoral Vein, and Common Femoral Vein with Nickel Plant Operator Device and Zelante AngioJet Aspiration Catheter 10. Angioplasty of Left Popliteal Vein and Left Superficial Femoral Vein with 10 x 60 EverCross Balloon 11. Ultrasound-Guided Access Right Internal Jugular Vein 12. Diagnostic Inferior Venacavogram 13. Removal of Elizabeth Inferior Vena Cava Filter 14. Radiologic Supervision with Interpretation 15. Monitored Moderate Sedation (Total Anesthesia Time: 182 Minutes) Surgeon: Kartik Moraes M.D. Waterproof Bag Cutting Machine Operator: rEika Anesthesia: Local/Monitored Moderate Sedation Total Anesthesia Time: 182 Minutes EBL: Minimal Counts: Correct Complications: None Condition: Stable Specimen: None Indication: The patient is a 30-year-old male who developed bilateral DVTs as well as a pulmonary embolus several weeks ago. He presented to the emergency department with complaints of severe bilateral lower extremity swelling. He underwent thrombolysis of bilateral lower extremities overnight and returns for removal of the catheters follow-up intervention as needed. He has been given the risk, benefits, and alternative procedures and has consented to the procedure. Angiographic Findings: The right lower extremity diagnostic venogram revealed the popliteal vein and superficial femoral vein remained occluded. The profunda vein was patent with residual thrombus throughout the vein however this was nonocclusive. There was thrombus within the right common femoral vein with near total occlusion. The external iliac vein was stenotic with approximately 90% stenosis. The right common iliac vein was stenotic with approximately 50% stenosis. The left lower extremity diagnostic venogram revealed stenosis in the popliteal vein and superficial femoral vein ranging from 40 to 65%. There was scattered thrombus within the popliteal vein and superficial femoral vein however this was nonocclusive. There was thrombus within the common femoral vein that was nonocclusive however there did not appear to be any significant stenosis. The external iliac vein and common iliac vein was patent without evidence of t hrombus or significant flow-limiting stenosis. After intervention the right popliteal vein and superficial femoral vein were patent with less than 25% residual stenosis. There was scattered thrombus throughout the veins however this was not flow-limiting. The right common iliac vein and external iliac vein were patent with less than 15% residual stenosis. The stent placed within the right external iliac vein extending into the common femoral vein. The right common femoral vein had less than 15% residual stenosis and minimal residual thrombus. After intervention of the left lower extremity there was less than 25% residual stenosis and scattered thrombus throughout the popliteal vein and superficial femoral vein however this was not flow-limiting. There was minimal residual thrombus within the common femoral vein that was not flow-limiting. There was no thrombus noted within the inferior vena cava filter and the filter was removed without complication. All legs of the filter were noted to be intact after removal. Description of Procedure: The patient was brought to the Director Of Resource Development and laid in prone position. After timeout was performed his bilateral popliteal fossa's and indwelling catheters were prepped and draped in normal sterile fashion. The EKOS thrombolysis ultrasound catheters were removed from each lower extremity and Bentson wires were advanced through the catheters and into the central venous system. Diagnostic venograms were performed to the catheters as well as the 6 [place] sheath with the previously described findings. Lidocaine was used to anesthet ize the skin and soft tissue surrounding the sheaths. The right sheath was then exchanged to an 8 [place] 11 cm sheath by Seldinger technique. The left sheath was then exchanged to an 8 [place] 23 centimeters sheath by Seldinger technique. At this point the patient was systemically heparinized with 4000 units of heparin IV. I then performed angioplasty of the right common femoral vein, superficial femoral vein, and above-knee popliteal vein using a 6 x 200 EverCross Balloon which resulted in a patent superficial femoral vein and popliteal vein however there was approximately 50% residual stenosis. I exchanged the Bentson wire for a Spartacore wire and performed angioplasty of the common femoral vein, superficial femoral vein, and popliteal vein, using an 8 x 40 Angiosculpt Balloon which resulted in less than 25% residual stenosis and a significant amount of thrombus within all veins. I removed the wire and then used a service cleaner device to dislodge the thrombus from the wall of the veins. I then used an 8 [place] Zelante AngioJet Aspiration Catheter to perform percutaneous mechanical thrombectomy of the common femoral vein, superficial femoral vein, and popliteal vein, resulting in minimal residual thrombus with less than 25% residual stenosis. I advanced a 0.035 glide advantage wire into the central venous system and then dilated the right external iliac vein using a 6 x 100 [place] Balloon. I upsized my 8 [place] sheath to a 9 [place] 11 cm sheath. I then advanced a 16 x 150 Medtronic Abre Self-Expanding Stent to the right common iliac vein followed by a 16 x 120 Medtronic Abre Self-Expanding Stent into the external iliac vein with several centimeters of overlap into the previously placed stent. I postdilated both stents with a 14 x 40 [place]lin Balloon which resulted in less than 15% residual stenosis. I then turned my attention to the left lower extremity. I used the service cleaner device to morcellate the thrombus and separate the thrombus from the venous wall. I then used the 8 [place] Zelante AngioJet Aspiration Catheter to perform percutaneous mechanical thrombectomy of the left common femoral vein, superficial femoral vein, and popliteal vein with a result of minimal residual thrombus. I performed angioplasty of all veins with a 10 x 60 EverCross Balloon with a result of less than 25% residual stenosis. At that point all balloons and wires were removed and the sheaths were removed and manual pressure was held to achieve hemostasis. Once hemostasis was achieved pressure dressings were applied to the entry sites and the patient was moved to his bed and then placed back on the Director Of Resource Development table in supine position. The patient had a Vas-Cath in his left common femoral vein which was removed. Pressure was held to achieve hemostasis. Once hemostasis was achieved Dermabond was placed on the entry site and a FemStop was placed on the groin, with low pressure, to achieve further hemostasis while the remainder of the procedure was being performed. I then used ultrasound to identify the right internal jugular vein and confirm patency. Once patency was confirmed the overlying skin and soft tissue was anesthetized with lidocaine. An 11 blade was used to make a small stab incision and then a 21-gauge micropuncture needle was used with ultrasound guidance to the right internal jugular vein. A 0.018 micropuncture wire was advanced to the vein and after the needle was removed the micropuncture sheath was placed by standard technique. A 0.035 J-wire was advanced to the inferior vena cava under fluoroscopy. The micropuncture sheath was then e xchanged for 5 [place] sheath by Seldinger technique. I then remove the 5 [place] sheath and dilated the track and then advanced the Cook IVC filter retrieval sheath into the IVC by Seldinger technique. I advanced the retrieval snare into the inferior vena cava and was able to place this around the IVC filter hook. I advanced the sheath down over the IVC filter and was able to pull this back into the sheath. I removed the entire sheath with the IVC filter within the sheath. I evaluated the IVC filter on the back table and all legs were in place. Manual pressure was held on the entry site to achieve hemostasis. Once hemostasis was achieved Dermabond was placed on the entry site and the patient was transported back to his room in stable condition.
[2021-06-28] MEDS ORDERED: DEXTROSE 50% IN WATER (25GM) 50 ML SYRINGE IV PRN (17:00)
[2021-06-28 18:42] LABS: Hematocrit 39.7 % (35.5-45.6); Hemoglobin 13.2 gm/dl (11.8-15.2); Mean Corpuscular HGB Conc 33 % (32-34); Mean Corpuscular Volume 82 fl (84-94); Platelet Count 214 K/mm3 (140-440); Red Blood Count 4.83 M/mm3 (3.65-5.03); Red Cell Distribution Width 17.6 % (13.2-15.2)
[2021-06-28 18:54] LABS: BUN/Creatinine Ratio 8; Blood Urea Nitrogen 7 mg/dL (9-20); Calcium 8.4 mg/dL (8.4-10.2); Hemolysis Index 14
[2021-06-28 19:03] LABS: INR 0.99 (0.87-1.13)
[2021-06-28 19:26] LABS: Partial Thromboplastin Time 62.9 Sec. (24.2-36.6)
[2021-06-28] MEDS: CYCLOBENZAPRINE 10 MG TAB PO SCH (19:49)
[2021-06-28] MEDS: APIXABAN 5 MG TAB PO SCH ×2 (19:49→22:23)
[2021-06-28] MEDS ORDERED: FAMOTIDINE 20 MG/2 ML INJ IV SCH (22:00)
[2021-06-28] MEDS ORDERED: APIXABAN 5 MG TAB PO SCH (22:00)
[2021-06-28] MEDS: HYDROcodone/ACETAMINOPHEN 5-325 MG TAB PO PRN (23:57)
--- NOTE | 2021-06-29 05:44 | Consultation ---
DATE OF CONSULTATION: 06/28/2021 PULMONARY CRITICAL CARE CONSULT NOTE CONSULTING PHYSICIAN: Dr. Devi. REASON FOR CONSULTATION: Acute venous thromboembolic phenomenon. CHIEF COMPLAINT AND HISTORY OF PRESENT ILLNESS: As follows. The patient is a 30-year-old male with a history of DVTs and PEs, who actually was on therapeutic anticoagulation with Lovenox, who presented to the Emergency Room for evaluation. He was complaining of leg pain. This has been going on for about a month, but the symptoms were worsened in 3 days. He described the pain as 7/10, constant, achy. He was evaluated in the Emergency Department. A CTA as well as a lower extremity Doppler showed large venous thromboembolic burden, in particular in the lower extremities, complicated by right heart strain. Vascular team was consulted in the Emergency Room. A decision was made to take him for EKOS, catheter-directed thrombolytic therapy. Post-placement of catheters, he was brought into the intensive care unit. When I stopped by to see him, he actually was doing better. He had just come down to the lab to have the catheters removed. He was complaining of some pain around the right lower extremity/right flank region. He denied any gross or streaky hematuria. He mentioned that he had a little bit of dysuria. With regards to tobacco use or abuse, he denies a history of tobacco use or abuse whatsoever. This really is as much of the history of presentation. PAST MEDICAL HISTORY: DVT, pulmonary embolism. PAST SURGICAL HISTORY: Denied. MEDICATIONS: He was on at the time I stopped by to see him, according to the medication administration record included the following: Tylenol 650 mg p.o. q. 4 hours p.r.n. mild pain or fevers, [place] 5/325 mg 1 tablet p.o. q. 4 hours p.r.n. moderate pain, albuterol nebulizer treatments 2.5 mg nebulized every 4 hours p.r.n. shortness of breath, Eliquis 10 mg p.o. q. 12 hours, Flexeril 10 mg p.o. t.i.d., Dilaudid 0.5 mg IV q. 3 hours p.r.n. severe pain, Zofran 4 mg IV q. 8 hours p.r.n. nausea and vomiting, Percocet 5/325 one tablet p.o. q. 6 hours p.r.n. moderate pain, Protonix 40 mg p.o. daily. ALLERGIES: No known drug allergies. DIET: Well built gentleman. Denies acute weight loss or gain in the preceding few weeks to months. FAMILY AND SOCIAL HISTORY: Lives in the community. Denies alcohol, tobacco or illicit drug use or abuse. FAMILY HISTORY: There is a family history of coronary artery disease, cancer, and diabetes. REVIEW OF SYSTEMS: No loss of consciousness. No new onset seizures. No new onset focal weakness. Denies gross hematochezia or melena. Denies gross hematuria or dysuria. No hematemesis, no hemoptysis. He did complain of mild dysuria. He denies heat or cold intolerance. Denies polydipsia or polyuria. Complete 13-system review of system was obtained. Pertinent positives and/or negatives as in body of history above, otherwise noncontributory. PHYSICAL EXAMINATION: VITAL SIGNS: At presentation, he was afebrile and since he has been afebrile, temperature 98.2, pulse was 57, respiratory rate was 18, blood pressure 109/73, O2 sats were 98% and that was on room air. GENERAL: He is well-built male. Normocephalic, atraumatic, talking to me in full sentences without significantly increased respiratory effort. HEAD, EYES, EARS, NOSE, AND THROAT: Anicteric. No conjunctival erythema. Oropharynx was moist. No gross jugular venous distention, no thyromegaly. Grossly, there were no palpable lymph nodes in the supraclavicular or submandibular lymph node chains. LUNGS: Auscultation of both lung plasencia revealed clear bilateral breath sounds, no wheezing. HEART: Sounds 1 and 2 are heard at the time of my evaluation. Regular rate and rhythm without overt rubs or murmurs. ABDOMEN: Soft, full, bowel sounds are positive, nontender, no palpable hepatosplenomegaly. EXTREMITIES: Without overt digital clubbing or cyanosis. He had pedal edema to the legs. He has dressings to the mid thigh/bowen regions. Otherwise, pedal pulses were 2+ bilaterally. NEUROLOGIC: Pupils equal, round, about 4 mm, reactive to light. Extraocular muscle movements were intact. He moves all 4 extremities continuously. SKIN: Normal turgor without overt cellulitis or rash. He did have the postop changes from the EKOS catheter placement. Please see the wound care nurses' notes for full description of his skin, otherwise. PSYCHIATRIC: Mood was normal. Affect was somewhat anxious. He had intact judgment and insight. LABORATORY DATA: From my review are as follows: Admission white cell count 5200, hemoglobin 13.3, hematocrit 41.1, platelet count 297. INR within normal limits. Fibrinogen within normal limits. Serum sodium was 140, potassium 4.2, chloride 105, bicarbonate 23, BUN 9, creatinine 0.9, glucose was 94. Liver function test within normal limits. Troponin within normal limits. Platelet count is still within normal limits. No microbiology studies. I have reviewed the CT angio. He does have small pulmonary clot burden in the descending trunks of both pulmonary arteries, area of likely atelectasis in the left lower lobe region. No focal consolidation, otherwise. No gross pneumothorax, no gross bony fracture. ASSESSMENT: 1. 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 2. Leg pain. 3. Bilateral pulmonary emboli. 4. Mild metabolic acidosis on presentation. PLAN: I will defer to the Vascular team for further management. We will continue his full anticoagulation, p.r.n. analgesia will be given to control pain symptoms. He will be watched overnight post EKOS procedure. The hope is we can transfer him to the step-down unit or to a lower level of care in the morning. I will keep an eye on his H and H and watch for bleeding. He is appropriately on GI prophylaxis. He is fully anticoagulated. Flu and pneumonia vaccination will be addressed per protocol. Thank you very much for the consult. We will follow along and make further recommendations as picture progresses/becomes clearer. TID: [id number] RECEIPT: [id number] JAVED/ALEK
[2021-06-29 05:57] LABS: INR 1.06 (0.87-1.13)
[2021-06-29 05:58] LABS: Partial Thromboplastin Time 39.4 Sec. (24.2-36.6)
[2021-06-29 06:24] LABS: BUN/Creatinine Ratio 10; Blood Urea Nitrogen 8 mg/dL (9-20); Calcium 8.7 mg/dL (8.4-10.2); Hemolysis Index 3
[2021-06-29] MEDS: PANTOPRAZOLE 40 MG TAB PO SCH (07:49)
[2021-06-29] MEDS: CYCLOBENZAPRINE 10 MG TAB PO SCH ×3 (07:52→21:39)
[2021-06-29] MEDS: APIXABAN 5 MG TAB PO SCH ×2 (09:14→21:40)
--- NOTE | 2021-06-29 11:35 | Progress Note ---
Assessment and Plan Assessment and plan: This is a 30-year-old male with a history of bilateral lower extremity DVT as well as segmental and subsegmental pulmonary embolism on Lovenox at home who came in complaining of bilateral lower extremities pain for the past month with persistent and worsening symptoms over the past 3 days. Imagings reveals pulmomary thrombus and extensive acute occlussive DVT within both lower extremities. Patient is s/p IVC filter placement and placement of bilateral lower extremity EKOS thrombolytics catheters by vascular. Patient was transferred to the intensive care unit post the procedure for further managemen t. Hospital Course to Date: 06/28/21- Patient remains on EKOS, fully AAO, on RA SpO2 @100%. Palpable pulses noted from bilateral lower extremities, no signs of any complications noted. Patient has been NPO since after midnight, plan to go back to cath lab radiology technician today for further vascular intervention and removal of EKOS catheters. 06/29/21- Patient is off EKOS. Remains stable throughout the night, no hematoma nor any active bleeding noted. Patient was started on Eliquis by Vascular. Pain management with PO analgesics/opiates. Patient is stable for transfer to the floor. Assessment and Plan #Acute Pain - Continue PRN analgesic/opiates - Non-pharmacologic measures for pain control - Early mobitility if okay by vascular #Pulmonary emboli #DVT, bilateral lower limbs - 06/27 BLE doppler with extensive acute occlusive DVT within both lower extremities - 06/27 CTA chest revealed positive pulmonary thrombus - Vascular consulted - 06/27 s/p IVC filter placement and placement of bilateral lower extremity EKOS thrombolytics catheters - On thrombolitics via EKOS- D/C on 06/28 - BLE with palpable pulses - On Eliquis per Vascular - Continue to trend H&H and coags, am labs ordered. #GI: NAP - diet was resumed - BR added since on pain meds - PPI- Pepcid IV #Hypoglycemia- resolved - Pt. is not diabetic - Continue POCT ACHS for now X24hrs - Continue Hypoglycemic protocol - Avoid hypoglycemia The high probability of a clinically significant, sudden or life threatening deterioration of the [Vascular, Endo] system(s) required my full and direct attention, intervention and personal management. The aggregate critical care time was [35] minutes. This time is in addition to time spent performing reported procedures but includes the following: [x] Data Review and interpretation [x] Patient assessment and monitoring of vital signs [x] Documentation [x] Medication orders and management Disposition Plan: ICU Total Time Spent with Patient (Minutes): 35 History Interval history: Patient seen and examined at the bedside. AAOx4, [place]ian speaking only. Used the therapy director service, patient stable he is feeling much better, bilateral lower extremities are still sore but tolerable. All question and concerns were addressed at this time. Hospitalist Physical - Constitutional Vitals: Temp Pulse Resp BP Pulse Ox 98.7 F 75 18 104/65 98 06/29/21 03:16 06/29/21 05:32 06/29/21 08:00 06/29/21 05:30 06/29/21 08:00 General appearance: Present: no acute distress, well-nourished - EENT Eyes: Present: PERRL ENT: hearing intact, clear oral mucosa - Neck Neck: Present: normal ROM - Respiratory Respiratory effort: normal Respiratory: bilateral: CTA - Cardiovascular Rhythm: regular Heart Sounds: Present: S1 & S2 - Extremities Extremities: no ischemia, pulses intact, pulses symmetrical Extremity abnormal: edema - Peripheral Assessment Bilateral Lower Extremity Edema Type: Non-pitting Edema Degree: 1+ Capillary Refill: < 3 seconds Skin Temperature: Hot Peripheral Pulses: within normal limits - Abdominal General gastrointestinal: soft, non-tender, normal bowel sounds - Integumentary Integumentary: Present: clear, warm, dry - Psychiatric Psychiatric: appropriate mood/affect, cooperative - Neurologic Neurologic: moves all extremities - Allied Health Allied health notes reviewed: nursing HEART Score - HEART Score Troponin: Troponin T < 0.010 ng/mL (0.00-0.029) 06/27/21 13:44 Results - Labs CBC & Chem 7: 06/28/21 18:31 06/29/21 05:03 Labs: Laboratory Last Values WBC 9.8 K/mm3 (4.5-11.0) 06/28/21 18:31 RBC 4.83 M/mm3 (3.65-5.03) 06/28/21 18:31 Hgb 13.2 gm/dl (11.8-15.2) 06/28/21 18:31 Hct 39.7 % (35.5-45.6) 06/28/21 18:31 MCV 82 fl (84-94) L 06/28/21 18:31 MCH 27 pg (28-32) L 06/28/21 18:31 MCHC 33 % (32-34) 06/28/21 18:31 RDW 17.6 % (13.2-15.2) H 06/28/21 18:31 Plt Count 214 K/mm3 (140-440) 06/28/21 18:31 Lymph % (Auto) 32.8 % (13.4-35.0) 06/28/21 04:45 [place] % (Auto) 7.6 % (0.0-7.3) H 06/28/21 04:45 Eos % (Auto) 2.6 % (0.0-4.3) 06/28/21 04:45 Baso % (Auto) 0.9 % (0.0-1.8) 06/28/21 04:45 Lymph # (Auto) 1.8 K/mm3 (1.2-5.4) 06/28/21 04:45 [place] # (Auto) 0.4 K/mm3 (0.0-0.8) 06/28/21 04:45 Eos # (Auto) 0.1 K/mm3 (0.0-0.4) 06/28/21 04:45 Baso # (Auto) 0.0 K/mm3 (0.0-0.1) 06/28/21 04:45 Seg Neutrophils % 56.1 % (40.0-70.0) 06/28/21 04:45 Seg Neutrophils # 3.0 K/mm3 (1.8-7.7) 06/28/21 04:45 PT 15.0 Sec. (12.2-14.9) H 06/29/21 05:03 INR 1.06 (0.87-1.13) 06/29/21 05:03 APTT 39.4 Sec. (24.2-36.6) H 06/29/21 05:03 Fibrinogen 262 mg/dl (211-480) 06/29/21 05:03 Sodium 139 mmol/L (137-145) 06/29/21 05:03 Potassium 4.3 mmol/L (3.6-5.0) 06/29/21 05:03 Chloride 102.3 mmol/L (98-107) 06/29/21 05:03 Carbon Dioxide 20 mmol/L (22-30) L 06/29/21 05:03 Anion Gap 21 mmol/L 06/29/21 05:03 BUN 8 mg/dL (9-20) L 06/29/21 05:03 Creatinine 0.8 mg/dL (0.8-1.3) 06/29/21 05:03 Estimated GFR > 60 ml/min 06/29/21 05:03 BUN/Creatinine Ratio 10 % 06/29/21 05:03 Glucose 117 mg/dL (75-100) H 06/29/21 05:03 POC Glucose 103 mg/dL (70-105) 06/29/21 07:42 Calcium 8.7 mg/dL (8.4-10.2) 06/29/21 05:03 Total Bilirubin 0.30 mg/dL (0.1-1.2) 06/27/21 08:36 AST 13 units/L (5-40) 06/27/21 08:36 ALT 29 units/L (7-56) 06/27/21 08:36 Alkaline Phosphatase 66 units/L (35-129) 06/27/21 08:36 Troponin T < 0.010 ng/mL (0.00-0.029) 06/27/21 13:44 Total Protein 7.2 g/dL (6.3-8.2) 06/27/21 08:36 Albumin 4.1 g/dL (3.9-5) 06/27/21 08:36 Albumin/Globulin Ratio 1.3 % 06/27/21 08:36 Stein/IV: Voiding Method Urinal Active Medications - Current Medications Current Medications: Generic Name Dose Route Start Last Admin Trade Name Freq PRN Reason Stop Dose Admin Acetaminophen 650 mg 06/27/21 14:33 06/29/21 03:39 Acetaminophen 325 Mg Tab PO 650 mg Q4H PRN Administration Pain MILD(1-3)/Fever >100.5/GAMEZ Hydrocodone Bitart/Acetaminophen 1 each 06/27/21 13:35 06/28/21 23:57 Hydrocodone/Acetaminophen 5-325 Mg Tab PO 1 each Q4H PRN Administration Pain, Moderate (4-6) Albuterol 2.5 mg 06/27/21 14:33 Albuterol 2.5 Mg/3 Ml Nebu IH Q4HRT PRN Shortness Of Breath Apixaban 10 mg 06/28/21 22:00 06/29/21 09:14 Apixaban 5 Mg Tab PO 07/05/21 10:01 10 mg Q12HR IDANIA Administration Protocol Apixaban 5 mg 07/05/21 22:00 Apixaban 5 Mg Tab PO Q12HR IDANIA Protocol Cyclobenzaprine HCl 10 mg 06/28/21 20:00 06/29/21 07:52 Cyclobenzaprine 10 Mg Tab PO 10 mg TID IDANIA Administration Dextrose 50 ml 06/28/21 17:00 06/28/21 18:18 Dextrose 50% In Water (25gm) 50 Ml Syringe IV 15 ml Q30MIN PRN Administration Hypoglycemia Protocol Hydromorphone HCl 0.5 mg 06/27/21 14:33 Hydromorphone 1 Mg/1 Ml Inj IV Q23H PRN Pain , Severe (7-10) Ondansetron HCl 4 mg 06/27/21 14:33 Ondansetron 4 Mg/2 Ml Inj IV Q8H PRN Nausea And Vomiting Oxycodone/Acetaminophen 1 tab 06/27/21 14:33 06/28/21 18:09 Oxycodone /Acetaminophen 5-325mg Tab PO 1 tab Q16H PRN Administration Pain, Moderate (4-6) Pantoprazole Sodium 40 mg 06/29/21 07:30 06/29/21 07:49 Pantoprazole 40 Mg Tab PO 40 mg QDAC IDANIA Administration Sodium Chloride 10 ml 06/27/21 22:00 06/29/21 09:14 Sodium Chloride 0.9% 10 Ml Flush Syringe IV 10 ml BID IDANIA Administration
--- NOTE | 2021-06-29 14:21 | Event Note ---
Date: 06/29/21 to transfer to medical floor please re-consult if critical care needed
--- NOTE | 2021-06-29 14:53 | Progress Note ---
Assessment and Plan 30-year-old male status post thrombolytic catheter placement, thrombolytic catheter removal, IVC filter placement, IVC filter removal, and thrombectomy of the bilateral lower extremities. On Eliquis. Recommend LILIAM pappase. Recommend transfer to telemetry. Needs wound care for right popliteal fossa. Recommend mupirocin and Mepilex dressing. Subjective Date of service: 06/29/21 Interval history: Complains of some right groin and thigh discomfort but overall is doing quite well. Small excoriation to the right popliteal fossa. Palpable pedal pulses. Swelling 1-2+ of the right lower extremity and 1+ of the left lower extremity. Objective - Constitutional Vitals: Vital Signs - 12hr 06/29/21 06/29/21 06/29/21 03:00 03:10 03:16 Temperature 98.7 F Pulse Rate 67 68 Respiratory 17 14 Rate Respiratory Rate [Right Leg ] Blood Pressure 106/63 106/63 O2 Sat by Pulse 99 99 Oximetry 06/29/21 06/29/21 06/29/21 03:20 03:30 03:34 Temperature Pulse Rate 70 73 Respiratory 14 14 Rate Respiratory Rate [Right Leg ] Blood Pressure 98/62 100/63 O2 Sat by Pulse 98 98 98 Oximetry 06/29/21 06/29/21 06/29/21 03:39 03:40 03:50 Temperature Pulse Rate 70 80 Respiratory 16 16 17 Rate Respiratory Rate [Right Leg ] Blood Pressure 100/63 113/64 O2 Sat by Pulse 98 100 Oximetry 06/29/21 06/29/21 06/29/21 04:00 04:10 04:20 Temperature Pulse Rate 67 72 71 Respiratory 16 14 14 Rate Respiratory Rate [Right Leg ] Blood Pressure 111/70 113/64 105/66 O2 Sat by Pulse 99 98 99 Oximetry 06/29/21 06/29/21 06/29/21 04:30 04:39 04:40 Temperature Pulse Rate 76 76 Respiratory 15 18 14 Rate Respiratory Rate [Right Leg ] Blood Pressure 104/71 104/71 O2 Sat by Pulse 99 98 Oximetry 06/29/21 06/29/21 06/29/21 04:50 05:00 05:10 Temperature Pulse Rate 73 75 73 Respiratory 15 16 17 Rate Respiratory Rate [Right Leg ] Blood Pressure 102/66 114/65 114/65 O2 Sat by Pulse 98 99 99 Oximetry 06/29/21 06/29/21 06/29/21 05:20 05:28 05:30 Temperature Pulse Rate 73 76 75 Respiratory 14 14 Rate Respiratory Rate [Right Leg ] Blood Pressure 99/67 104/65 O2 Sat by Pulse 98 98 99 Oximetry 06/29/21 06/29/21 06/29/21 05:32 08:00 12:00 Temperature Pulse Rate 75 Respiratory 20 20 Rate Respiratory 18 Rate [Right Leg ] Blood Pressure O2 Sat by Pulse 98 98 Oximetry 06/29/21 12:31 Temperature 99.1 F Pulse Rate Respiratory Rate Respiratory Rate [Right Leg ] Blood Pressure O2 Sat by Pulse Oximetry General appearance: Present: no acute distress - EENT Eyes: EOM intact ENT: hearing intact - Respiratory Respiratory effort: normal Extremities: pulses intact, abnormal (see subjective) - Psychiatric Psychiatric: appropriate mood/affect, cooperative - Labs CBC & Chem 7: 06/28/21 18:31 06/29/21 05:03 Labs: Abnormal lab results 06/28/21 06/28/21 06/28/21 Range/Units 17:39 18:11 18:31 MCV 82 L (84-94) fl MCH 27 L (28-32) pg RDW 17.6 H (13.2-15.2) % PT (12.2-14.9) Sec. APTT (24.2-36.6) Sec. Sodium (137-145) mmol/L Carbon Dioxide (22-30) mmol/L BUN (9-20) mg/dL Glucose (75-100) mg/dL POC Glucose 59 L 66 L (70-105) mg/dL 06/28/21 06/28/21 06/29/21 Range/Units 18:31 18:32 01:51 MCV (84-94) fl MCH (28-32) pg RDW (13.2-15.2) % PT (12.2-14.9) Sec. APTT 62.9 H* (24.2-36.6) Sec. Sodium 136 L (137-145) mmol/L Carbon Dioxide 18 L (22-30) mmol/L BUN 7 L (9-20) mg/dL Glucose 115 H (75-100) mg/dL POC Glucose 135 H (70-105) mg/dL 06/29/21 06/29/21 06/29/21 Range/Units 03:53 05:03 05:03 MCV (84-94) fl MCH (28-32) pg RDW (13.2-15.2) % PT 15.0 H (12.2-14.9) Sec. APTT 39.4 H (24.2-36.6) Sec. Sodium (137-145) mmol/L Carbon Dioxide 20 L (22-30) mmol/L BUN 8 L (9-20) mg/dL Glucose 117 H (75-100) mg/dL POC Glucose 115 H (70-105) mg/dL 06/29/21 Range/Units 05:08 MCV (84-94) fl MCH (28-32) pg RDW (13.2-15.2) % PT (12.2-14.9) Sec. APTT (24.2-36.6) Sec. Sodium (137-145) mmol/L Carbon Dioxide (22-30) mmol/L BUN (9-20) mg/dL Glucose (75-100) mg/dL POC Glucose 108 H (70-105) mg/dL Medications & Allergies - Medications Allergies/Adverse Reactions: Allergies No Known Allergies Allergy (Verified 06/27/21 08:00) Home Medications: Home Medications Medication Instructions Recorded Confirmed Last Taken Type Enoxaparin Sodium [Lovenox] 80 mg SUB-Q BID 06/27/21 06/27/21 Unknown History Active Medications: Generic Name Dose Route Start Last Admin Trade Name Freq PRN Reason Stop Dose Admin Acetaminophen 650 mg 06/27/21 14:33 06/29/21 03:39 Acetaminophen 325 Mg Tab PO 650 mg Q4H PRN Administration Pain MILD(1-3)/Fever >100.5/GAMEZ Hydrocodone Bitart/Acetaminophen 1 each 06/27/21 13:35 06/28/21 23:57 Hydrocodone/Acetaminophen 5-325 Mg Tab PO 1 each Q4H PRN Administration Pain, Moderate (4-6) Albuterol 2.5 mg 06/27/21 14:33 Albuterol 2.5 Mg/3 Ml Nebu IH Q4HRT PRN Shortness Of Breath Apixaban 10 mg 06/28/21 22:00 06/29/21 09:14 Apixaban 5 Mg Tab PO 07/05/21 10:01 10 mg Q12HR IDANIA Administration Protocol Apixaban 5 mg 07/05/21 22:00 Apixaban 5 Mg Tab PO Q12HR IDANIA Protocol Cyclobenzaprine HCl 10 mg 06/28/21 20:00 06/29/21 07:52 Cyclobenzaprine 10 Mg Tab PO 10 mg TID IDANIA Administration Dextrose 50 ml 06/28/21 17:00 06/28/21 18:18 Dextrose 50% In Water (25gm) 50 Ml Syringe IV 15 ml Q30MIN PRN Administration Hypoglycemia Protocol Docusate Sodium 100 mg 06/30/21 10:00 Docusate Sodium 100 Mg Cap PO QDAY IDANIA Hydromorphone HCl 0.5 mg 06/27/21 14:33 Hydromorphone 1 Mg/1 Ml Inj IV Q23H PRN Pain , Severe (7-10) Ondansetron HCl 4 mg 06/27/21 14:33 Ondansetron 4 Mg/2 Ml Inj IV Q8H PRN Nausea And Vomiting Oxycodone/Acetaminophen 1 tab 06/27/21 14:33 06/28/21 18:09 Oxycodone /Acetaminophen 5-325mg Tab PO 1 tab Q16H PRN Administration Pain, Moderate (4-6) Pantoprazole Sodium 40 mg 06/29/21 07:30 06/29/21 07:49 Pantoprazole 40 Mg Tab PO 40 mg QDAC IDANIA Administration Senna 17.2 mg 06/29/21 22:00 Sennosides 8.6 Mg Tab PO QHS [facility] Sodium Chloride 10 ml 06/27/21 22:00 06/29/21 09:14 Sodium Chloride 0.9% 10 Ml Flush Syringe IV 10 ml BID IDANIA Administration HEART Score - HEART Score Troponin: Troponin T < 0.010 ng/mL (0.00-0.029) 06/27/21 13:44
[2021-06-29] MEDS: MUPIROCIN 2% OINT 22 GM TP SCH ×2 (17:51→21:38)
[2021-06-29] MEDS: SENNOSIDES 8.6 MG TAB PO SCH (21:39)
[2021-06-30 07:32] LABS: Hematocrit 37.6 % (35.5-45.6); Mean Corpuscular HGB Conc 32 % (32-34); Mean Corpuscular Volume 83 fl (84-94); Platelet Count 230 K/mm3 (140-440); Red Blood Count 4.54 M/mm3 (3.65-5.03); Red Cell Distribution Width 17.9 % (13.2-15.2)
[2021-06-30 07:50] LABS: BUN/Creatinine Ratio 10; Blood Urea Nitrogen 8 mg/dL (9-20); Calcium 8.6 mg/dL (8.4-10.2); Hemolysis Index 13
[2021-06-30] MEDS: CYCLOBENZAPRINE 10 MG TAB PO SCH ×3 (10:18→22:15)
[2021-06-30] MEDS: PANTOPRAZOLE 40 MG TAB PO SCH (10:18)
[2021-06-30] MEDS: DOCUSATE SODIUM 100 MG CAP PO SCH (10:18)
[2021-06-30] MEDS: MUPIROCIN 2% OINT 22 GM TP SCH ×2 (10:19→22:16)
[2021-06-30] MEDS: APIXABAN 5 MG TAB PO SCH ×2 (10:19→22:16)
--- NOTE | 2021-06-30 12:34 | Progress Note ---
Assessment and Plan Assessment and plan: 30-year-old male patient with bilateral lower extremity DVT, segmental and subsegmental PE, evaluated by vascular s/p thrombolytic catheter placement, thrombolytic catheter removal, IVC filter placement, IVC filter removal, and thrombectomy of the bilateral lower extremities. Patient was on heparin drip transitioned to Eliquis per protocols. Patient is wearing LILIAM hose bilateral lower extremities #Pulmonary emboli #DVT, bilateral lower limbs - 06/27 BLE doppler with extensive acute occlusive DVT within both lower extremities - 06/27 CTA chest revealed positive pulmonary thrombus - Vascular consulted - 06/27 s/p IVC filter placement and placement of bilateral lower extremity EKOS thrombolytics catheters - On thrombolitics via EKOS- D/C on 06/28 - BLE with palpable pulses - On Eliquis per Vascular -Continue LILIAM hose bilateral lower extremity #Acute Pain - Continue PRN analgesic/opiates - Non-pharmacologic measures for pain control - Early mobitility if okay by vascular #Hypoglycemia- resolved - Pt. is not diabetic - Continue POCT ACHS for now X24hrs - Continue Hypoglycemic protocol - Avoid hypoglycemia Ambulate as tolerated Possible discharge in 1 to 2 days if stable Case management to assist with Eliquis prescriptions/meds Hospital Course to Date: 06/28/21- Patient remains on EKOS, fully AAO, on RA SpO2 @100%. Palpable pulses noted from bilateral lower extremities, no signs of any complications noted. Patient has been NPO since after midnight, plan to go back to supervisor cytogenetic laboratory today for further vascular intervention and removal of EKOS catheters. 06/29/21- Patient is off EKOS. Remains stable throughout the night, no hematoma nor any active bleeding noted. Patient was started on Eliquis by Vascular. Pain management with PO analgesics/opiates. Patient is stable for transfer to the floor. 06/30/2021; patient is on Eliquis, bilateral lower extremity LILIAM hose, case management to assist with Eliquis at discharge History Interval history: I have seen and examined the patient at the bedside Patient's chart and medications reviewed No new events reported by the nursing No new complaints Hospitalist Physical - Constitutional Vitals: Temp Pulse Resp BP Pulse Ox 97.9 F 85 16 104/68 99 06/30/21 11:13 06/30/21 08:00 06/30/21 11:13 06/30/21 11:13 06/30/21 08:00 General appearance: Present: no acute distress, well-nourished - EENT Eyes: Present: PERRL, EOM intact - Neck Neck: Present: supple, normal ROM - Respiratory Respiratory effort: normal Respiratory: bilateral: diminished, negative: rales, rhonchi, wheezing - Cardiovascular Rhythm: regular Heart Sounds: Present: S1 & S2 - Extremities Extremities: no ischemia, No edema, abnormal (LILIAM hose in place) - Abdominal General gastrointestinal: soft, non-tender, non-distended, normal bowel sounds - Integumentary Integumentary: Present: clear, warm - Psychiatric Psychiatric: appropriate mood/affect, cooperative - Neurologic Neurologic: CNII-XII intact, moves all extremities HEART Score - HEART Score Troponin: Troponin T < 0.010 ng/mL (0.00-0.029) 06/27/21 13:44 Results - Labs CBC & Chem 7: 06/30/21 04:25 06/30/21 04:25 Labs: Laboratory Last Values WBC 7.3 K/mm3 (4.5-11.0) 06/30/21 04:25 RBC 4.54 M/mm3 (3.65-5.03) 06/30/21 04:25 Hgb 12.0 gm/dl (11.8-15.2) 06/30/21 04:25 Hct 37.6 % (35.5-45.6) 06/30/21 04:25 MCV 83 fl (84-94) L 06/30/21 04:25 MCH 27 pg (28-32) L 06/30/21 04:25 MCHC 32 % (32-34) 06/30/21 04:25 RDW 17.9 % (13.2-15.2) H 06/30/21 04:25 Plt Count 230 K/mm3 (140-440) 06/30/21 04:25 Lymph % (Auto) 32.8 % (13.4-35.0) 06/28/21 04:45 [place] % (Auto) 7.6 % (0.0-7.3) H 06/28/21 04:45 Eos % (Auto) 2.6 % (0.0-4.3) 06/28/21 04:45 Baso % (Auto) 0.9 % (0.0-1.8) 06/28/21 04:45 Lymph # (Auto) 1.8 K/mm3 (1.2-5.4) 06/28/21 04:45 [place] # (Auto) 0.4 K/mm3 (0.0-0.8) 06/28/21 04:45 Eos # (Auto) 0.1 K/mm3 (0.0-0.4) 06/28/21 04:45 Baso # (Auto) 0.0 K/mm3 (0.0-0.1) 06/28/21 04:45 Seg Neutrophils % 56.1 % (40.0-70.0) 06/28/21 04:45 Seg Neutrophils # 3.0 K/mm3 (1.8-7.7) 06/28/21 04:45 PT 15.0 Sec. (12.2-14.9) H 06/29/21 05:03 INR 1.06 (0.87-1.13) 06/29/21 05:03 APTT 39.4 Sec. (24.2-36.6) H 06/29/21 05:03 Fibrinogen 262 mg/dl (211-480) 06/29/21 05:03 Sodium 140 mmol/L (137-145) 06/30/21 04:25 Potassium 3.7 mmol/L (3.6-5.0) 06/30/21 04:25 Chloride 103.4 mmol/L (98-107) 06/30/21 04:25 Carbon Dioxide 24 mmol/L (22-30) 06/30/21 04:25 Anion Gap 16 mmol/L 06/30/21 04:25 BUN 8 mg/dL (9-20) L 06/30/21 04:25 Creatinine 0.8 mg/dL (0.8-1.3) 06/30/21 04:25 Estimated GFR > 60 ml/min 06/30/21 04:25 BUN/Creatinine Ratio 10 % 06/30/21 04:25 Glucose 90 mg/dL (75-100) 06/30/21 04:25 POC Glucose 111 mg/dL (70-105) H 06/30/21 11:12 Calcium 8.6 mg/dL (8.4-10.2) 06/30/21 04:25 Total Bilirubin 0.30 mg/dL (0.1-1.2) 06/27/21 08:36 AST 13 units/L (5-40) 06/27/21 08:36 ALT 29 units/L (7-56) 06/27/21 08:36 Alkaline Phosphatase 66 units/L (35-129) 06/27/21 08:36 Troponin T < 0.010 ng/mL (0.00-0.029) 06/27/21 13:44 Total Protein 7.2 g/dL (6.3-8.2) 06/27/21 08:36 Albumin 4.1 g/dL (3.9-5) 06/27/21 08:36 Albumin/Globulin Ratio 1.3 % 06/27/21 08:36 Stein/IV: Voiding Method Urinal Active Medications - Current Medications Current Medications: Generic Name Dose Route Start Last Admin Trade Name Freq PRN Reason Stop Dose Admin Acetaminophen 650 mg 06/27/21 14:33 06/29/21 03:39 Acetaminophen 325 Mg Tab PO 650 mg Q4H PRN Administration Pain MILD(1-3)/Fever >100.5/GAMEZ Hydrocodone Bitart/Acetaminophen 1 each 06/27/21 13:35 06/28/21 23:57 Hydrocodone/Acetaminophen 5-325 Mg Tab PO 1 each Q4H PRN Administration Pain, Moderate (4-6) Albuterol 2.5 mg 06/27/21 14:33 Albuterol 2.5 Mg/3 Ml Nebu IH Q4HRT PRN Shortness Of Breath Apixaban 10 mg 06/28/21 22:00 06/30/21 10:19 Apixaban 5 Mg Tab PO 07/05/21 10:01 10 mg Q12HR IDANIA Administration Protocol Apixaban 5 mg 07/05/21 22:00 Apixaban 5 Mg Tab PO Q12HR IDANIA Protocol Cyclobenzaprine HCl 10 mg 06/28/21 20:00 06/30/21 10:18 Cyclobenzaprine 10 Mg Tab PO 10 mg TID IDANIA Administration Dextrose 50 ml 06/28/21 17:00 06/28/21 18:18 Dextrose 50% In Water (25gm) 50 Ml Syringe IV 15 ml Q30MIN PRN Administration Hypoglycemia Protocol Docusate Sodium 100 mg 06/30/21 10:00 06/30/21 10:18 Docusate Sodium 100 Mg Cap PO 100 mg QDAY IDANIA Administration Hydromorphone HCl 0.5 mg 06/27/21 14:33 Hydromorphone 1 Mg/1 Ml Inj IV Q23H PRN Pain , Severe (7-10) Mupirocin 1 applic 06/29/21 16:50 06/30/21 10:19 Mupirocin 2% Oint 22 Gm TP 1 applic BID IDANIA Administration Ondansetron HCl 4 mg 06/27/21 14:33 Ondansetron 4 Mg/2 Ml Inj IV Q8H PRN Nausea And Vomiting Oxycodone/Acetaminophen 1 tab 06/27/21 14:33 06/28/21 18:09 Oxycodone /Acetaminophen 5-325mg Tab PO 1 tab Q16H PRN Administration Pain, Moderate (4-6) Pantoprazole Sodium 40 mg 06/29/21 07:30 06/30/21 10:18 Pantoprazole 40 Mg Tab PO 40 mg QDAC IDANIA Administration Senna 17.2 mg 06/29/21 22:00 06/29/21 21:39 Sennosides 8.6 Mg Tab PO 17.2 mg QHS IDANIA Administration Sodium Chloride 10 ml 06/27/21 22:00 06/30/21 10:19 Sodium Chloride 0.9% 10 Ml Flush Syringe IV 10 ml BID IDANIA Administration
--- NOTE | 2021-06-30 15:44 | Progress Note ---
Assessment and Plan 30-year-old male status post thrombolytic catheter placement, thrombolytic catheter removal, IVC filter placement, IVC filter removal, and thrombectomy of the bilateral lower extremities. On Eliquis. Recommend continuing LILIAM hose. Can be discharged tomorrow once patient receives anticoagulation. Patient will need to have anticoagulation in hand prior to discharge. I will contact our office to see if this can be arranged. Subjective Date of service: 06/30/21 Interval history: Again, complains of some right groin and thigh discomfort but overall is doing quite well. Mepilex dressing to the right popliteal fossa. Palpable pedal pulses. LILIAM hose on. Swelling 1+ of the right lower extremity and 1+ of the left lower extremity. Objective - Constitutional Vitals: Vital Signs - 12hr 06/30/21 06/30/21 06/30/21 04:11 07:59 08:00 Temperature 98.3 F 98.1 F 98.1 F Pulse Rate 72 74 85 Respiratory 16 16 16 Rate Blood Pressure 105/69 110/72 O2 Sat by Pulse 97 98 99 Oximetry 06/30/21 11:13 Temperature 97.9 F Pulse Rate Respiratory 16 Rate Blood Pressure 104/68 O2 Sat by Pulse Oximetry General appearance: Present: no acute distress - EENT Eyes: EOM intact ENT: hearing intact - Respiratory Respiratory effort: normal Extremities: normal temperature, normal color, abnormal (see subjective) - Gastrointestinal General gastrointestinal: Present: soft, non-tender - Psychiatric Psychiatric: appropriate mood/affect, cooperative - Labs CBC & Chem 7: 06/30/21 04:25 06/30/21 04:25 Labs: Abnormal lab results 06/29/21 06/30/21 06/30/21 Range/Units 20:38 04:25 04:25 MCV 83 L (84-94) fl MCH 27 L (28-32) pg RDW 17.9 H (13.2-15.2) % BUN 8 L (9-20) mg/dL POC Glucose 112 H (70-105) mg/dL 06/30/21 Range/Units 11:12 MCV (84-94) fl MCH (28-32) pg RDW (13.2-15.2) % BUN (9-20) mg/dL POC Glucose 111 H (70-105) mg/dL Medications & Allergies - Medications Allergies/Adverse Reactions: Allergies No Known Allergies Allergy (Verified 06/27/21 08:00) Home Medications: Home Medications Medication Instructions Recorded Confirmed Last Taken Type Enoxaparin Sodium [Lovenox] 80 mg SUB-Q BID 06/27/21 06/27/21 Unknown History Active Medications: Generic Name Dose Route Start Last Admin Trade Name Freq PRN Reason Stop Dose Admin Acetaminophen 650 mg 06/27/21 14:33 06/29/21 03:39 Acetaminophen 325 Mg Tab PO 650 mg Q4H PRN Administration Pain MILD(1-3)/Fever >100.5/GAMEZ Hydrocodone Bitart/Acetaminophen 1 each 06/27/21 13:35 06/28/21 23:57 Hydrocodone/Acetaminophen 5-325 Mg Tab PO 1 each Q4H PRN Administration Pain, Moderate (4-6) Albuterol 2.5 mg 06/27/21 14:33 Albuterol 2.5 Mg/3 Ml Nebu IH Q4HRT PRN Shortness Of Breath Apixaban 10 mg 06/28/21 22:00 06/30/21 10:19 Apixaban 5 Mg Tab PO 07/05/21 10:01 10 mg Q12HR IDANIA Administration Protocol Apixaban 5 mg 07/05/21 22:00 Apixaban 5 Mg Tab PO Q12HR IDANIA Protocol Cyclobenzaprine HCl 10 mg 06/28/21 20:00 06/30/21 14:29 Cyclobenzaprine 10 Mg Tab PO 10 mg TID IDANIA Administration Dextrose 50 ml 06/28/21 17:00 06/28/21 18:18 Dextrose 50% In Water (25gm) 50 Ml Syringe IV 15 ml Q30MIN PRN Administration Hypoglycemia Protocol Docusate Sodium 100 mg 06/30/21 10:00 06/30/21 10:18 Docusate Sodium 100 Mg Cap PO 100 mg QDAY IDANIA Administration Hydromorphone HCl 0.5 mg 06/27/21 14:33 Hydromorphone 1 Mg/1 Ml Inj IV Q23H PRN Pain , Severe (7-10) Mupirocin 1 applic 06/29/21 16:50 06/30/21 10:19 Mupirocin 2% Oint 22 Gm TP 1 applic BID IDANIA Administration Ondansetron HCl 4 mg 06/27/21 14:33 Ondansetron 4 Mg/2 Ml Inj IV Q8H PRN Nausea And Vomiting Oxycodone/Acetaminophen 1 tab 06/27/21 14:33 06/28/21 18:09 Oxycodone /Acetaminophen 5-325mg Tab PO 1 tab Q16H PRN Administration Pain, Moderate (4-6) Pantoprazole Sodium 40 mg 06/29/21 07:30 06/30/21 10:18 Pantoprazole 40 Mg Tab PO 40 mg QDAC IDANIA Administration Senna 17.2 mg 06/29/21 22:00 06/29/21 21:39 Sennosides 8.6 Mg Tab PO 17.2 mg QHS IDANIA Administration Sodium Chloride 10 ml 06/27/21 22:00 06/30/21 10:19 Sodium Chloride 0.9% 10 Ml Flush Syringe IV 10 ml BID IDANIA Administration HEART Score - HEART Score Troponin: Troponin T < 0.010 ng/mL (0.00-0.029) 06/27/21 13:44
[2021-06-30] MEDS: SENNOSIDES 8.6 MG TAB PO SCH (22:15)
[2021-07-01] MEDS: PANTOPRAZOLE 40 MG TAB PO SCH (10:22)
[2021-07-01] MEDS: DOCUSATE SODIUM 100 MG CAP PO SCH (10:22)
[2021-07-01] MEDS: CYCLOBENZAPRINE 10 MG TAB PO SCH (10:22)
[2021-07-01] MEDS: APIXABAN 5 MG TAB PO SCH (10:22)
[2021-07-01] MEDS: MUPIROCIN 2% OINT 22 GM TP SCH (10:59)
--- NOTE | 2021-07-01 13:05 | Discharge Summary ---
Providers - Providers Date of Admission: 06/27/21 14:33 Date of discharge: 07/01/21 Attending physician: MARCIE OREILLY 06/27/21 13:38 Consult to Physician [CONS] Urgent Comment: Consulting Provider: LUPE MARTINEZ Physician Instructions: Reason For Exam: dvt/pe 06/28/21 08:10 Consult to Physician [CONS] Routine Comment: Consulting Provider: LIN METZ Physician Instructions: Reason For Exam: IVC filter placement/thrombosis/EKOS, CC consult 06/29/21 18:46 Consult to Wound/ET Nurse [CONS] Urgent Reason For Exam: wound eval Primary care physician: FLASHER ADJUSTER Hospitalization Condition: Stable Hospital course: 1-year-old male patient with bilateral lower extremity DVT, segmental and subsegmental PE, evaluated by vascular s/p thrombolytic catheter placement, thrombolytic catheter removal, IVC filter placement, IVC filter removal, and thrombectomy of the bilateral lower extremities. Patient was on heparin drip transitioned to Eliquis per protocols. Patient is wearing LILIAM hose bilateral lower extremities #Pulmonary emboli #DVT, bilateral lower limbs - 06/27 BLE doppler with extensive acute occlusive DVT within both lower extremities - 06/27 CTA chest revealed positive pulmonary thrombus - Vascular consulted - 06/27 s/p IVC filter placement and placement of bilateral lower extremity EKOS thrombolytics catheters - On thrombolitics via EKOS- D/C on 06/28 - BLE with palpable pulses - On Eliquis per Vascular -Continue LILIAM hose bilateral lower extremity #Acute Pain - Continue PRN analgesic/opiates - Non-pharmacologic measures for pain control - Early mobitility if okay by vascular #Hypoglycemia- resolved - Pt. is not diabetic - Continue POCT ACHS for now X24hrs - Continue Hypoglycemic protocol - Avoid hypoglycemia Ambulate as tolerated Possible discharge in 1 to 2 days if stable Case management to assist with Eliquis prescriptions/meds Hospital Course to Date: 06/28/21- Patient remains on EKOS, fully AAO, on RA SpO2 @100%. Palpable pulses noted from bilateral lower extremities, no signs of any complications noted. Patient has been NPO since after midnight, plan to go back to environmental laboratory technician today for further vascular intervention and removal of EKOS catheters. 06/29/21- Patient is off EKOS. Remains stable throughout the night, no hematoma nor any active bleeding noted. Patient was started on Eliquis by Vascular. Pain management with PO analgesics/opiates. Patient is stable for transfer to the floor. 06/30/2021; patient is on Eliquis, bilateral lower extremity LILIAM sepulveda, case management to assist with Eliquis at discharge Dictation box box Disposition: HOME / SELF CARE / HOMELESS Final Discharge Diagnosis (Prints w/discharge instructions): Pulmonary embolism. Bilateral lower extremity DVT. s/p EKOS thrombolysis Time spent for discharge: 35 min Exam - Constitutional Vitals: Temp Pulse Resp BP Pulse Ox 98.4 F 71 18 102/60 96 07/01/21 04:20 07/01/21 04:20 07/01/21 04:20 07/01/21 04:20 07/01/21 08:35 Plan Activity: advance as tolerated Diet: regular Additional Instructions: Vascular IR Dr. Martinez gave 5-month supply of Xarelto,. Through the translation line patient was given the instructions of how to use the medications, the risks and side effects, and advised to contact MD or go to the nearest emergency room if he has any bleeding or worsening symptoms Follow up with: PRIMARY CAREMD [Primary Care Provider] - 3-5 Days LUPE MARTINEZ MD [Staff Physician] - 10 Days Prescriptions: Mupirocin [Bactroban 2% OINT] 1 applic TP BID #1 tube Cyclobenzaprine [Flexeril 10 MG TAB] 10 mg PO TID #15 tablet Pantoprazole [Protonix TAB] 40 mg PO QDAC #20 tablet Rivaroxaban [Xarelto] 15 mg PO BID 21 Days #42 tablet Rivaroxaban [Xarelto] 20 mg PO QDAY #30 tab
--- NOTE | 2021-07-01 13:56 | Progress Note ---
Assessment and Plan - Patient Problems (1) Pulmonary emboli Current Visit: Yes Status: Acute Qualifiers: Pulmonary embolism type: unspecified Acute cor pulmonale presence: with acute cor pulmonale (2) DVT, bilateral lower limbs Current Visit: Yes Status: Acute Qualifiers: Affected thrombotic vein of extremity: popliteal Chronicity: unspecified Qualified Code(s): I82.433 - Acute embolism and thrombosis of popliteal vein, bilateral Subjective Date of service: 07/01/21 Objective Vital Signs - 12hr 07/01/21 07/01/21 04:20 08:35 Temperature 98.4 F Pulse Rate 71 Respiratory 18 Rate Blood Pressure 102/60 O2 Sat by Pulse 97 96 Oximetry CBC and BMP: 06/30/21 04:25 07/01/21 07:15 ABG, PT/INR, D-dimer: PT/INR, D-dimer PT 15.0 Sec. (12.2-14.9) H 06/29/21 05:03 INR 1.06 (0.87-1.13) 06/29/21 05:03 Abnormal lab findings: Abnormal Labs 06/27/21 06/27/21 06/27/21 08:36 19:27 19:27 MCV 83 L MCH 27 L 27 L RDW 17.8 H 17.5 H Lymph % (Auto) 35.4 H [place] % (Auto) 7.9 H PT APTT 235.8 H* Sodium Carbon Dioxide BUN Glucose POC Glucose 06/27/21 06/28/21 06/28/21 19:27 00:40 00:40 MCV MCH 27 L RDW 17.9 H Lymph % (Auto) 37.5 H [place] % (Auto) PT APTT 97.5 H* Sodium Carbon Dioxide 21 L BUN 6 L Glucose POC Glucose 06/28/21 06/28/21 06/28/21 04:45 04:45 04:45 MCV 83 L MCH RDW 18.0 H Lymph % (Auto) [place] % (Auto) 7.6 H PT APTT 69.4 H* Sodium Carbon Dioxide BUN 6 L Glucose POC Glucose 06/28/21 06/28/21 06/28/21 08:32 08:32 11:43 MCV 82 L MCH 27 L RDW 17.4 H Lymph % (Auto) [place] % (Auto) PT APTT 64.5 H* Sodium Carbon Dioxide BUN Glucose POC Glucose 69 L 06/28/21 06/28/21 06/28/21 17:39 18:11 18:31 MCV 82 L MCH 27 L RDW 17.6 H Lymph % (Auto) [place] % (Auto) PT APTT Sodium Carbon Dioxide BUN Glucose POC Glucose 59 L 66 L 06/28/21 06/28/21 06/29/21 18:31 18:32 01:51 MCV MCH RDW Lymph % (Auto) [place] % (Auto) PT APTT 62.9 H* Sodium 136 L Carbon Dioxide 18 L BUN 7 L Glucose 115 H POC Glucose 135 H 06/29/21 06/29/21 06/29/21 03:53 05:03 05:03 MCV MCH RDW Lymph % (Auto) [place] % (Auto) PT 15.0 H APTT 39.4 H Sodium Carbon Dioxide 20 L BUN 8 L Glucose 117 H POC Glucose 115 H 06/29/21 06/29/21 06/30/21 05:08 20:38 04:25 MCV 83 L MCH 27 L RDW 17.9 H Lymph % (Auto) [place] % (Auto) PT APTT Sodium Carbon Dioxide BUN Glucose POC Glucose 108 H 112 H 06/30/21 06/30/21 06/30/21 04:25 11:12 15:52 MCV MCH RDW Lymph % (Auto) [place] % (Auto) PT APTT Sodium Carbon Dioxide BUN 8 L Glucose POC Glucose [address] scan - chest: report reviewed, image reviewed Prior PFT's, U/S of legs: report reviewed, image reviewed Additional Studies: CTA chest with contrast INDICATION : cp OMNI 350 100 ML. TECHNIQUE: Axial imaging performed through the chest, with contrast bolus timing set to maximize opacification of the pulmonary arteries. 3-plane MIP reformatted images were obtained. All CT scans at this location are performed using CT dose reduction for ALARA by means of automated exposure control. 100 mL of intravenous contrast administered. COMPARISON: None FINDINGS: Bolus/PTE: Contrast bolus timing is adequate. There is thrombus primarily seen along the branch points in the segmental and subsegmental distribution bilaterally, some of which is marginalized and therefore age indeterminate although some other areas appear slightly more acute. Mild streaky airspace disease noted in the left greater than right lung bases and there is also some underlying nodularity and a few of these areas (for example see the superior segment of the right lower lobe on image #206 of series 4). No dense consolidation or pleural effusion identified. Mediastinum: Normal heart size. No pathologic mediastinal adenopathy. There is slight flattening of the interventricular septum and there is mild haziness in the mediastinal fat. No pathologic mediastinal adenopathy. Upper abdomen: Limited imaging of the upper abdomen shows nothing acute. Bones: Degenerative changes in the spine with nothing acute. IMPRESSION: 1. Positive for PTE as outlined above. 2. Lung findings as above. Given the nodularity, recommend follow-up to resolution. DUPLEX DOPPLER LOWER EXTREMITY VEINS, BILATERAL 06/27/21 INDICATION / CLINICAL INFORMATION: Lower extremity pain and swelling TECHNIQUE: Duplex doppler imaging was performed through the veins of both lower extremities using venous compression and other maneuvers. COMPARISON: None available. FINDINGS: Right Common Femoral vein: Positive. Right Femoral vein: Positive. Right Popliteal vein: Positive. Right Calf veins: Positive. Left Common Femoral vein: Negative. Left Femoral vein: Positive. Left Popliteal vein: Positive. Left Calf veins: Positive. Additional findings: None. IMPRESSION: Extensive acute occlusive appearing DVT identified within within both lower extremities, as above. The color consultant notified nurse lisa Fernandez at 10:55 AM on the day of the exam.
[2021-07-01 15:04] VITALS: BP 81/54
--- NOTE | 2021-07-01 16:11 | Progress Note ---
Assessment and Plan 30-year-old male status post thrombolytic catheter placement, thrombolytic catheter removal, IVC filter placement, IVC filter removal, and thrombectomy of the bilateral lower extremities. Recommend continuing LILIAM hose. Was able to obtain 5 months of Xarelto anticoagulation. Discussed in depth with the use of the costume director service how to use Xarelto. Recommended follow-up with Dr. Moraes or Dr. Lyons in the next 2 to 4 weeks. Patient understands. Subjective Date of service: 07/01/21 Interval history: Again, complains of some right groin and thigh discomfort but overall is doing quite well. Mepilex dressing to the right popliteal fossa. Palpable pedal pulses. LILIAM hose on. Swelling 1+ of the right lower extremity and 1+ of the left lower extremity. Objective - Constitutional Vitals: Vital Signs - 12hr 07/01/21 07/01/21 07/01/21 04:20 08:00 08:35 Temperature 98.4 F 98.0 F Pulse Rate 71 18 L Respiratory 18 18 Rate Blood Pressure 102/60 Blood Pressure 81/54 [Right] O2 Sat by Pulse 97 100 96 Oximetry General appearance: Present: no acute distress - EENT Eyes: EOM intact ENT: hearing intact - Respiratory Respiratory effort: normal Extremities: normal temperature, normal color Extremity abnormal: edema - Psychiatric Psychiatric: appropriate mood/affect, cooperative - Labs CBC & Chem 7: 06/30/21 04:25 07/01/21 07:15 Medications & Allergies - Medications Allergies/Adverse Reactions: Allergies No Known Allergies Allergy (Verified 06/27/21 08:00) Home Medications: Home Medications Medication Instructions Recorded Confirmed Last Taken Type Cyclobenzaprine [Flexeril 10 MG 10 mg PO TID #15 tablet 07/01/21 Unknown Rx TAB] Mupirocin [Bactroban 2% OINT] 1 applic TP BID #1 tube 07/01/21 Unknown Rx Pantoprazole [Protonix TAB] 40 mg PO QDAC #20 tablet 07/01/21 Unknown Rx Rivaroxaban [Xarelto] 15 mg PO BID 21 Days #42 tablet 07/01/21 Unknown Rx Rivaroxaban [Xarelto] 20 mg PO QDAY #30 tab 07/01/21 Unknown Rx HEART Score - HEART Score Troponin: Troponin T < 0.010 ng/mL (0.00-0.029) 06/27/21 13:44
[2021-07-05] MEDS ORDERED: APIXABAN 5 MG TAB PO SCH (22:00)
== END 2021-07-01 15:38 | disposition home or self-care (01) | DRG 270 ==
LOC: ED 07:57 → 4A 14:33 → EDBD 14:33 → CC1 16:48 → 4A 06-29 17:51
PROVIDERS: ADMIT Internal Medicine; ATTEND Internal Medicine
PROC: 06H03DZ Insertion of Intraluminal Device into Inferior Vena Cava, Percutaneous Approach (ICD-10-PCS; principal; 2021-06-27)
PROC: 04HK33Z Insertion of Infusion Device into Right Femoral Artery, Percutaneous Approach (ICD-10-PCS; 2021-06-27)
PROC: 3E06317 Introduction of Other Thrombolytic into Central Artery, Percutaneous Approach (ICD-10-PCS; 2021-06-27)
PROC: 04HN33Z Insertion of Infusion Device into Left Popliteal Artery, Percutaneous Approach (ICD-10-PCS; 2021-06-27)
PROC: 3E06317 Introduction of Other Thrombolytic into Central Artery, Percutaneous Approach (ICD-10-PCS; 2021-06-27)
PROC: 04CL3ZZ Extirpation of Matter from Left Femoral Artery, Percutaneous Approach (ICD-10-PCS; 2021-06-28)
PROC: 047C3DZ Dilation of Right Common Iliac Artery with Intraluminal Device, Percutaneous Approach (ICD-10-PCS; 2021-06-28)
PROC: 047H3DZ Dilation of Right External Iliac Artery with Intraluminal Device, Percutaneous Approach (ICD-10-PCS; 2021-06-28)
PROC: 04CN3ZZ Extirpation of Matter from Left Popliteal Artery, Percutaneous Approach (ICD-10-PCS; 2021-06-28)
PROC: 047L3ZZ Dilation of Left Femoral Artery, Percutaneous Approach (ICD-10-PCS; 2021-06-28)
PROC: 047N3ZZ Dilation of Left Popliteal Artery, Percutaneous Approach (ICD-10-PCS; 2021-06-28)
DX: I82.433 Acute embolism and thrombosis of popliteal vein, bilateral (principal); I26.09 Other pulmonary embolism with acute cor pulmonale; E16.2 Hypoglycemia, unspecified
CPT/HCPCS: 36415; 36556; 37191; 37212; 71275; 76937; 80048; 80053; 82565; 82962; 84484; 85014; 85018; 85025; 85027; 85384; 85610; 85730; 93005; 93970; G0378; C1751; C1752; C1757; C1769; C1880; C1894; J0690; J1170; J1644; J2250; J2997; J3010; J7030; J7040; Q9967